=== PATIENT | female | born 1990 | race Caucasian/White ===

== ENCOUNTER 2016-09-10 19:20 | Emergency (ER) | payer MEDICAID ==
[2015-09-06 16:15] VITALS: BMI 29.6
[~2016-09-10 19:20] MED LIST: DILAUDID2 MG PO; IBUPROFEN600 MG PO; PERCOCET 10/3251 TA1 PO; ZOFRAN4 MG PO
[2016-09-10 20:12] LABS: BASOPHILS 0.3 % (0.0-2.0); EOSINOPHILS 1.3 % (0-7); HEMATOCRIT 42.6 % (36.0-48.0); HEMOGLOBIN 14.7 g/dL (12-16); IMMATURE GRANULOCYTES 0.3 % (0-5); LYMPHOCYTES 29.4 % (15-50); MCH 29.9 pg (26.0-34.0); MCHC 34.5 g/dL (31.0-37.0); MCV 86.8 fL (80.0-100.0); MEAN PLATELET VOLUME 11.8 fL (7.4-10.4); MONOCYTES 8.9 % (2-11); NEUTROPHILS 59.8 % (40-80); PLATELET COUNT 226 10x3/uL (130-400); RBC 4.91 10x6/uL (4.00-5.40); RDW 14.3 % (11.5-14.5); WBC 10.3 10x3/uL (4.8-10.8)
[2016-09-10 20:53] LABS: ALBUMIN 3.9 g/dL (3.4-5.0); ALKALINE PHOSPHATASE 59 U/L (46-116); ALT (SGPT) 26 U/L (10-68); APPEARANCE CLEAR (CLEAR); BILIRUBIN NEGATIVE (NEGATIVE); CALC OSMOLALITY 275 mosm/kg (275-300); CARBON DIOXIDE 30.7 mmol/L (21.0-32.0); CHLORIDE - SERUM 103 mmol/L (98-107); COLOR YELLOW (YELLOW); CREATININE - SERUM 0.7 mg/dL (0.6-1.3); GLUCOSE 95 mg/dL (74-106); GLUCOSE NEGATIVE (NEGATIVE); KETONE NEGATIVE (NEGATIVE); LEUKOCYTE ESTERASE NEGATIVE (NEGATIVE); NITRITE NEGATIVE (NEGATIVE); POTASSIUM - SERUM 4.2 mmol/L (3.5-5.1); PROTEIN NEGATIVE (NEGATIVE); PROTEIN - SERUM 7.4 g/dL (6.4-8.2); SODIUM 139 mmol/L (136-145); UREA NITROGEN 7 mg/dL (7-18); UROBILINOGEN NORMAL (NORMAL); eGFR NON AFRICAN AMERICAN > 90 mL/min (90-120)
== END 2016-09-11 00:33 | disposition home or self-care (01) ==
LOC: D.ER 19:20
PROVIDERS: Emergency Medicine
DX: R10.2 Pelvic and perineal pain (principal)

== ENCOUNTER 2016-12-27 14:11 | Emergency (ER) | payer SELFPAY ==
[2015-09-06 16:15] VITALS: BMI 29.6
== END 2016-12-27 14:15 | disposition left against medical advice (07) ==
LOC: D.ER 14:11
DX: Z02.9 Encounter for administrative examinations, unspecified (principal)

== ENCOUNTER → 2016-12-28 10:24 | Emergency (ER) | payer MEDICAID ==
[2015-09-06 16:15] VITALS: BMI 29.6
[2016-12-28 11:11] LABS: BASOPHILS 0.4 % (0-2); EOSINOPHILS 1.6 % (0-7); HEMOGLOBIN 14.2 g/dL (12-16); IMMATURE GRANULOCYTES 0.1 % (0-5); LYMPHOCYTES 23.4 % (15-50); MCH 29.8 pg (26.0-34.0); MCHC 33.8 g/dL (31.0-37.0); MCV 88.1 fL (80.0-100.0); MEAN PLATELET VOLUME 11.8 fL (7.4-10.4); MONOCYTES 13.4 % (2-11); NEUTROPHILS 61.1 % (40-80); PLATELET COUNT 198 10x3/uL (130-400); RBC 4.77 10x6/uL (4.00-5.40); RDW 13.4 % (11.5-14.5); WBC 7.3 10x3/uL (4.8-10.8)
[2016-12-28 11:28] LABS: ALBUMIN 3.7 g/dL (3.4-5.0); ALKALINE PHOSPHATASE 53 U/L (46-116); ALT (SGPT) 21 U/L (10-68); BILIRUBIN - TOTAL 0.31 mg/dL (0.2-1.3); CALC OSMOLALITY 278 mosm/kg (275-300); CARBON DIOXIDE 27.1 mmol/L (21.0-32.0); CHLORIDE - SERUM 107 mmol/L (98-107); CREATININE - SERUM 0.7 mg/dL (0.6-1.3); GLUCOSE 90 mg/dL (74-106); POTASSIUM - SERUM 4.5 mmol/L (3.5-5.1); PROTEIN - SERUM 7.3 g/dL (6.4-8.2); SODIUM 141 mmol/L (136-145); UREA NITROGEN 7 mg/dL (7-18); eGFR NON AFRICAN AMERICAN > 90 mL/min (90-120)
== END | disposition left against medical advice (07) ==
LOC: D.ER 10:24
PROVIDERS: Emergency Medicine
DX: F41.9 Anxiety disorder, unspecified (principal); S00.93XA Contusion of unspecified part of head, initial encounter; W19.XXXA Unspecified fall, initial encounter; Y93.89 Activity, other specified; Y92.89 Other specified places as the place of occurrence of the external cause; F32.9 Major depressive disorder, single episode, unspecified

== ENCOUNTER 2017-02-18 16:35 | Emergency (ER) | payer MEDICAID ==
[2015-09-06 16:15] VITALS: BMI 29.6
[2017-02-18 17:59] LABS: APPEARANCE HAZY (CLEAR); BILIRUBIN NEGATIVE (NEGATIVE); COLOR YELLOW (YELLOW); GLUCOSE NEGATIVE (NEGATIVE); KETONE NEGATIVE (NEGATIVE); LEUKOCYTE ESTERASE 1+ (NEGATIVE); NITRITE NEGATIVE (NEGATIVE); PROTEIN NEGATIVE (NEGATIVE); UROBILINOGEN NORMAL (NORMAL)
[2017-02-18 18:03] LABS: BACTERIA MODERATE /hpf (NONE SEEN); EPITHELIAL CELLS 0-5 /hpf (0-5); MUCUS <1+ /lpf (NONE SEEN)
[2017-02-18 19:08] LABS: BASOPHILS 0.2 % (0-2); EOSINOPHILS 1.4 % (0-7); HEMATOCRIT 42.3 % (36.0-48.0); HEMOGLOBIN 14.4 g/dL (12-16); IMMATURE GRANULOCYTES 0.3 % (0-5); MCH 29.8 pg (26.0-34.0); MCV 87.6 fL (80.0-100.0); MEAN PLATELET VOLUME 11.4 fL (7.4-10.4); MONOCYTES 8.3 % (2-11); NEUTROPHILS 71.8 % (40-80); RBC 4.83 10x6/uL (4.00-5.40); RDW 13.9 % (11.5-14.5); WBC 18.2 10x3/uL (4.8-10.8)
[2017-02-18 19:10] LABS: PLATELET COUNT 243 10x3/uL (130-400)
[2017-02-18 19:10] LABS: UDS - AMPHET NEGATIVE QUAL (NEGATIVE); UDS - BARB NEGATIVE QUAL (NEGATIVE); UDS - BENZO NEGATIVE QUAL (NEGATIVE); UDS - COCAINE NEGATIVE QUAL (NEGATIVE); UDS - METH NEGATIVE QUAL (NEGATIVE); UDS - OPIATE POSITIVE QUAL (NEGATIVE); UDS - PCP NEGATIVE QUAL (NEGATIVE); UDS - THC NEGATIVE QUAL (NEGATIVE)
[2017-02-18 19:37] LABS: ALBUMIN 4.6 g/dL (3.4-5.0); ALKALINE PHOSPHATASE 75 U/L (46-116); ALT (SGPT) 23 U/L (10-68); BILIRUBIN - TOTAL 0.24 mg/dL (0.2-1.3); CALC OSMOLALITY 274 mosm/kg (275-300); CALCIUM 9.3 mg/dL (8.5-10.1); CARBON DIOXIDE 30.1 mmol/L (21.0-32.0); CHLORIDE - SERUM 100 mmol/L (98-107); CREATININE - SERUM 0.6 mg/dL (0.6-1.3); GLUCOSE 97 mg/dL (74-106); LIPASE 122 U/L (73-393); POTASSIUM - SERUM 3.9 mmol/L (3.5-5.1); PROTEIN - SERUM 8.1 g/dL (6.4-8.2); SODIUM 138 mmol/L (136-145); UREA NITROGEN 10 mg/dL (7-18); eGFR NON AFRICAN AMERICAN > 90 mL/min (90-120)
[2017-02-18 19:38] LABS: HCG SERUM NEGATIVE (NEGATIVE)
== END 2017-02-18 22:20 | disposition home or self-care (01) ==
LOC: D.ER 16:35
PROVIDERS: Emergency Medicine; Nurse Practitioner Family
DX: R10.2 Pelvic and perineal pain (principal); N76.0 Acute vaginitis; B96.89 Other specified bacterial agents as the cause of diseases classified elsewhere; N39.0 Urinary tract infection, site not specified; K59.00 Constipation, unspecified

== ENCOUNTER 2017-03-02 16:43 | Emergency (ER) | payer MEDICAID ==
[2015-09-06 16:15] VITALS: BMI 29.6
== END 2017-03-02 18:40 | disposition home or self-care (01) ==
LOC: D.ER 16:43
DX: S93.402A Sprain of unspecified ligament of left ankle, initial encounter (principal); X58.XXXA Exposure to other specified factors, initial encounter

== ENCOUNTER 2017-06-08 10:08 | Emergency (ER) | payer MEDICAID ==
[2015-09-06 16:15] VITALS: BMI 29.6
[2017-06-08 10:32] LABS: BASOPHILS 0.2 % (0-2); EOSINOPHILS 1.4 % (0-7); HEMATOCRIT 45.1 % (36.0-48.0); HEMOGLOBIN 15.7 g/dL (12-16); IMMATURE GRANULOCYTES 0.1 % (0-5); LYMPHOCYTES 16.1 % (15-50); MCH 31.6 pg (26.0-34.0); MCHC 34.8 g/dL (31.0-37.0); MCV 90.7 fL (80.0-100.0); MEAN PLATELET VOLUME 11.8 fL (7.4-10.4); MONOCYTES 7.5 % (2-11); NEUTROPHILS 74.7 % (40-80); PLATELET COUNT 231 10x3/uL (130-400); RBC 4.97 10x6/uL (4.00-5.40); RDW 13.1 % (11.5-14.5); WBC 10.7 10x3/uL (4.8-10.8)
[2017-06-08 10:42] LABS: AMYLASE - SERUM 46 U/L (25-115); LIPASE 260 U/L (73-393)
[2017-06-08 10:45] LABS: TROPONIN-I < 0.017 ng/mL (0.000-0.060)
[2017-06-08 11:48] LABS: ALBUMIN 4.2 g/dL (3.4-5.0); ALKALINE PHOSPHATASE 78 U/L (46-116); ALT (SGPT) 20 U/L (10-68); BILIRUBIN - TOTAL 0.34 mg/dL (0.2-1.3); CALC OSMOLALITY 285 mosm/kg (275-300); CALCIUM 9.7 mg/dL (8.5-10.1); CARBON DIOXIDE 26.2 mmol/L (21.0-32.0); CHLORIDE - SERUM 103 mmol/L (98-107); CREATININE - SERUM 0.8 mg/dL (0.6-1.3); GLUCOSE 93 mg/dL (74-106); MAGNESIUM - SERUM 2.1 mg/dL (1.8-2.4); POTASSIUM - SERUM 3.8 mmol/L (3.5-5.1); PROTEIN - SERUM 8.4 g/dL (6.4-8.2); SODIUM 144 mmol/L (136-145); UREA NITROGEN 11 mg/dL (7-18); eGFR NON AFRICAN AMERICAN > 90 mL/min (90-120)
== END 2017-06-08 12:26 | disposition home or self-care (01) ==
LOC: D.ER 10:08
PROVIDERS: Emergency Medicine
DX: R10.9 Unspecified abdominal pain (principal); F17.200 Nicotine dependence, unspecified, uncomplicated; R00.0 Tachycardia, unspecified

== ENCOUNTER → 2017-07-11 11:41 | Outpatient (CLI) | payer MEDICAID ==
[2015-09-06 16:15] VITALS: BMI 29.6
[~2017-07-11 11:41] MED LIST changes: +ADDERALL 20 MG20 M1 PO; +BACTRIM DS TABL1 TAB PO; +CLEOCIN HCL300 MG PO; +EFFEXOR XR150 MG PO; +ELMIRON100 MG PO; +HYDROCODONE-APA1 TAB PO; +HYSINGLA ER30 MG PO; +KLONOPIN1 MG PO; +OXYCODONE HCL5 MG PO
== END | disposition home or self-care (01) ==
LOC: D.NM 11:41
DX: R10.11 Right upper quadrant pain (principal)

== ENCOUNTER 2017-07-19 23:26 | Emergency (ER) | payer MEDICAID ==
[2015-09-06 16:15] VITALS: BMI 29.6
[~2017-07-19 23:26] MED LIST changes: -ADDERALL 20 MG20 M1 PO; -BACTRIM DS TABL1 TAB PO; -CLEOCIN HCL300 MG PO; -EFFEXOR XR150 MG PO; -ELMIRON100 MG PO; -HYDROCODONE-APA1 TAB PO; -HYSINGLA ER30 MG PO; -KLONOPIN1 MG PO; -OXYCODONE HCL5 MG PO
[2017-07-20 00:54] LABS: BASOPHILS 0.4 % (0-2); EOSINOPHILS 5.5 % (0-7); HEMOGLOBIN 13.8 g/dL (12-16); IMMATURE GRANULOCYTES 0.1 % (0-5); LYMPHOCYTES 51.5 % (15-50); MCH 30.8 pg (26.0-34.0); MCHC 33.7 g/dL (31.0-37.0); MCV 91.5 fL (80.0-100.0); MEAN PLATELET VOLUME 13.1 fL (7.4-10.4); MONOCYTES 9.3 % (2-11); NEUTROPHILS 33.2 % (40-80); PLATELET COUNT 190 10x3/uL (130-400); RBC 4.48 10x6/uL (4.00-5.40); RDW 13.7 % (11.5-14.5); WBC 7.8 10x3/uL (4.8-10.8)
[2017-07-20 01:02] LABS: APPEARANCE CLOUDY (CLEAR); BILIRUBIN NEGATIVE (NEGATIVE); COLOR YELLOW (YELLOW); GLUCOSE NEGATIVE (NEGATIVE); KETONE NEGATIVE (NEGATIVE); NITRITE NEGATIVE (NEGATIVE); PROTEIN NEGATIVE (NEGATIVE); UROBILINOGEN NORMAL (NORMAL)
[2017-07-20 01:03] LABS: AMORPHOUS SEDIMENT >1+ /lpf (NONE SEEN); BACTERIA NONE SEEN /hpf (NONE SEEN); EPITHELIAL CELLS 0-5 /hpf (0-5); RED CELLS - URINE NONE SEEN /hpf (0-5); WHITE CELLS - URINE 0-5 /hpf (0-5)
[2017-07-20 01:19] LABS: ALBUMIN 3.9 g/dL (3.4-5.0); ALKALINE PHOSPHATASE 59 U/L (46-116); ALT (SGPT) 22 U/L (10-68); CALC OSMOLALITY 281 mosm/kg (275-300); CALCIUM 8.7 mg/dL (8.5-10.1); CARBON DIOXIDE 29.2 mmol/L (21.0-32.0); CHLORIDE - SERUM 105 mmol/L (98-107); CREATININE - SERUM 0.9 mg/dL (0.6-1.3); GLUCOSE 92 mg/dL (74-106); PROTEIN - SERUM 7.2 g/dL (6.4-8.2); SODIUM 142 mmol/L (136-145); UREA NITROGEN 10 mg/dL (7-18); eGFR NON AFRICAN AMERICAN 80 mL/min (90-120)
[2017-07-20 01:25] LABS: AMYLASE - SERUM 23 U/L (25-115); LIPASE 113 U/L (73-393)
== END 2017-07-20 03:36 | disposition home or self-care (01) ==
LOC: D.ER 23:26
PROVIDERS: Emergency Medicine
DX: K80.50 Calculus of bile duct without cholangitis or cholecystitis without obstruction (principal); F17.200 Nicotine dependence, unspecified, uncomplicated

== ENCOUNTER 2017-07-28 14:47 | Emergency (ER) | payer MEDICAID ==
[2015-09-06 16:15] VITALS: BMI 29.6
[2017-07-28 15:44] LABS: BASOPHILS 0.4 % (0-2); EOSINOPHILS 3.6 % (0-7); HEMATOCRIT 42.4 % (36.0-48.0); HEMOGLOBIN 14.7 g/dL (12-16); IMMATURE GRANULOCYTES 0.1 % (0-5); LYMPHOCYTES 39.8 % (15-50); MCH 31.5 pg (26.0-34.0); MCHC 34.7 g/dL (31.0-37.0); MCV 90.8 fL (80.0-100.0); MONOCYTES 12.6 % (2-11); NEUTROPHILS 43.5 % (40-80); PLATELET COUNT 177 10x3/uL (130-400); RBC 4.67 10x6/uL (4.00-5.40); RDW 13.6 % (11.5-14.5); WBC 8.3 10x3/uL (4.8-10.8)
[2017-07-28 15:45] LABS: APPEARANCE HAZY (CLEAR); BILIRUBIN NEGATIVE (NEGATIVE); COLOR DK YELLOW (YELLOW); GLUCOSE NEGATIVE (NEGATIVE); KETONE NEGATIVE (NEGATIVE); NITRITE NEGATIVE (NEGATIVE); PROTEIN TRACE mg/dL (NEGATIVE); SPECIFIC GRAVITY 1.025 (1.005-1.020); UROBILINOGEN NORMAL (NORMAL)
[2017-07-28 15:48] LABS: ALBUMIN 4.1 g/dL (3.4-5.0); ALKALINE PHOSPHATASE 59 U/L (46-116); ALT (SGPT) 19 U/L (10-68); AMYLASE - SERUM 26 U/L (25-115); BILIRUBIN - TOTAL 0.27 mg/dL (0.2-1.3); CALC OSMOLALITY 276 mosm/kg (275-300); CALCIUM 9.3 mg/dL (8.5-10.1); CARBON DIOXIDE 27.3 mmol/L (21.0-32.0); CHLORIDE - SERUM 103 mmol/L (98-107); CREATININE - SERUM 0.8 mg/dL (0.6-1.3); GLUCOSE 74 mg/dL (74-106); LIPASE 102 U/L (73-393); POTASSIUM - SERUM 3.9 mmol/L (3.5-5.1); PROTEIN - SERUM 7.7 g/dL (6.4-8.2); SODIUM 139 mmol/L (136-145); UREA NITROGEN 13 mg/dL (7-18); eGFR NON AFRICAN AMERICAN > 90 mL/min (90-120)
[2017-07-28 15:52] LABS: EPITHELIAL CELLS OCC /hpf (0-5); RED CELLS - URINE RARE /hpf (0-5); WHITE CELLS - URINE 0-5 /hpf (0-5)
[2017-07-28 15:53] LABS: BACTERIA FEW /hpf (NONE SEEN); CALCIUM OXALATE CRYSTALS OCC /hpf (NONE SEEN); HYALINE CAST RARE /lpf (NONE SEEN); MUCUS >1+ /lpf (NONE SEEN)
== END 2017-07-28 17:28 | disposition home or self-care (01) ==
LOC: D.ER 14:47
PROVIDERS: Emergency Medicine; Nurse Practitioner Family
DX: K80.50 Calculus of bile duct without cholangitis or cholecystitis without obstruction (principal)

== ENCOUNTER 2017-07-30 12:19 | Day surgery (SDC) | payer MEDICAID ==
[~2017-07-30] VITALS: Ht 160 cm; Wt 68.0 kg
[2017-07-30 12:54] VITALS: BMI 26.6
[2017-07-30] MEDS ORDERED: HYSINGLA ER30 MG PO (13:14)
[2017-07-30] MEDS ORDERED: EFFEXOR XR150 MG PO (13:14)
[2017-07-30] MEDS ORDERED: KLONOPIN1 MG PO (13:15)
[2017-07-30] MEDS ORDERED: ADDERALL 20 MG20 M1 PO (13:16)
[2017-07-30] MEDS ORDERED: ELMIRON100 MG PO (13:16)
[2017-07-30] MEDS ORDERED: HYDROCODONE-APA1 TAB PO (13:17)
[2017-07-30 14:45] LABS: BASOPHILS 0.3 % (0-2); HEMOGLOBIN 14.5 g/dL (12-16); IMMATURE GRANULOCYTES 0.1 % (0-5); LYMPHOCYTES 25.7 % (15-50); MCH 31.4 pg (26.0-34.0); MCHC 34.5 g/dL (31.0-37.0); MCV 90.9 fL (80.0-100.0); MEAN PLATELET VOLUME 12.3 fL (7.4-10.4); MONOCYTES 11.8 % (2-11); NEUTROPHILS 58.1 % (40-80); PLATELET COUNT 176 10x3/uL (130-400); RBC 4.62 10x6/uL (4.00-5.40); RDW 13.4 % (11.5-14.5); WBC 7.7 10x3/uL (4.8-10.8)
[2017-07-30 15:00] LABS: APTT 28.4 SECONDS (22.8-39.4); INR 1.03 (0.85-1.17); PROTIME 13.1 SECONDS (11.6-15.0)
[2017-07-30 15:08] LABS: ALBUMIN 3.9 g/dL (3.4-5.0); ALKALINE PHOSPHATASE 58 U/L (46-116); ALT (SGPT) 20 U/L (10-68); BILIRUBIN - DIRECT 0.09 mg/dL (0.00-0.30); BILIRUBIN - INDIRECT 0.19 mg/dL (0.00-1.00); BILIRUBIN - TOTAL 0.28 mg/dL (0.2-1.3); CALC OSMOLALITY 275 mosm/kg (275-300); CALCIUM 8.8 mg/dL (8.5-10.1); CARBON DIOXIDE 28.2 mmol/L (21.0-32.0); CHLORIDE - SERUM 104 mmol/L (98-107); CREATININE - SERUM 0.6 mg/dL (0.6-1.3); GLUCOSE 95 mg/dL (74-106); POTASSIUM - SERUM 4.3 mmol/L (3.5-5.1); PROTEIN - SERUM 7.2 g/dL (6.4-8.2); SODIUM 138 mmol/L (136-145); UREA NITROGEN 13 mg/dL (7-18); eGFR NON AFRICAN AMERICAN > 90 mL/min (90-120)
[2017-07-30 15:23] VITALS: BP 101/71
[2017-07-30 20:00] VITALS: BP 121/68
--- NOTE | 2017-07-30 21:47 | NUR ---
1943)REC'D. STATES NEED MY BOLUS . INFORMED TOO SOON.WILL BE 45MIN AND I'LL BE MORE THAN HAPPY TO ADMINISTER TO YOU. VOICES UNDERSTANDING.LEFT ROOM ARC AND GAS WELDER STATES 2211 STATES BEEN TRYING TO GET BOLUS FOR AN HOUR WENT BACK TO ROOM INFORMED OF CONVERSATION WE JUST HAD STATES I NEED IT.INFORMED I HAVE TO GIVE MED.ACCORDING TO PHYSICIAN'S ORDER AGAIN VOICES UNDERSTANDING.LEAVING ANOTHER PATIENTS ROOM ALONDRA TAYLOR STATES CLAIMS ADJUSTER EMPTY IN 2211.ENTERED ROOM WITH MEDICATION STATES PAIN PUMP HAS BEEN EMPTY FOR 2 HOURS ATTEMPTED TO SAY NO I JUST LEFT YOUR ROOM STATES GET OUT GET ME ANOTHER NURSE REPORTED TO KATIE TAYLOR CHARGE NURSE.
--- NOTE | 2017-07-30 21:55 | NUR ---
RECIEVED PATIENT. SHE IS SITTING UP IN BED CRYING. SHE STATED "I AM HAVING A PANIC ATTACK I NEED MY MEDICINE." GAVE PATIENT HER SCHEDULED KLONOPIN." THE FILM WRITER PUMP IS TURNED OFF, THE SYRINGE IS EMPTY. REPLACED SYRINGE, ADMINISTERED A 0.5MG BOLUS, PER ORDER. CONFIRMED FILM WRITER PUMP SETTINGS ARE SET PER ORDER. PATIENT REQUESTED AN EXTRA BLANKET AND HER HEATING PAD HEATED. HEATED HER HEATING PAD AND BROUGHT HER A BLANKET. SHE DENIES ANY OTHER NEEDS AT THIS TIME.
--- NOTE | 2017-07-31 | NUR ---
PATIENT NOW NPO. 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 POST-VOID BLADDER SCAN SHOWED 91ML.
[2017-07-31 04:00] VITALS: BP 124/59
[2017-07-31 05:55] LABS: BASOPHILS 0.4 % (0-2); EOSINOPHILS 4.3 % (0-7); HEMOGLOBIN 13.2 g/dL (12-16); IMMATURE GRANULOCYTES 0.3 % (0-5); LYMPHOCYTES 45.5 % (15-50); MCH 30.6 pg (26.0-34.0); MCHC 33.8 g/dL (31.0-37.0); MCV 90.5 fL (80.0-100.0); MEAN PLATELET VOLUME 13.1 fL (7.4-10.4); MONOCYTES 13.4 % (2-11); NEUTROPHILS 36.1 % (40-80); RBC 4.31 10x6/uL (4.00-5.40); RDW 13.3 % (11.5-14.5)
[2017-07-31 05:56] LABS: PLATELET COUNT 128 10x3/uL (130-400)
[2017-07-31 05:59] LABS: CALC OSMOLALITY 275 mosm/kg (275-300); CALCIUM 8.8 mg/dL (8.5-10.1); CARBON DIOXIDE 31.4 mmol/L (21.0-32.0); CHLORIDE - SERUM 102 mmol/L (98-107); CREATININE - SERUM 0.6 mg/dL (0.6-1.3); GLUCOSE 90 mg/dL (74-106); MAGNESIUM - SERUM 1.9 mg/dL (1.8-2.4); POTASSIUM - SERUM 4.1 mmol/L (3.5-5.1); SODIUM 138 mmol/L (136-145); UREA NITROGEN 12 mg/dL (7-18); eGFR NON AFRICAN AMERICAN > 90 mL/min (90-120)
--- NOTE | 2017-07-31 07:00 | NUR ---
PT REC'D FROM [facility]. RESTING IN BED WATCHING TV. AAOX4. CURRENT PAIN LEVEL IN ABB 05/05. STATED SHE JUST RECENTLY USED HER DEVELOPMENT PLANNER BUTTON AND IS ASKING ABOUT HER BOLUS DOSE. EXPLAINED TO PT THAT SHE COULD HAVE HER NEXT BOLUS DOSE AT 0800. REGULAR HEART RATE AND RHYTHM. LUNG SOUNDS CLEAR AND EQUAL BILAT. BOWEL SOUNDS HYPERACTIVE X4 QUADS. TENDER TO LIGHT PALPATION. STATED HER LAST BM WAS YESTERDAY AFTERNOON. PIV TO R FA FREE OF REDNESS AND SWELLING. REMINDED PT TO DO CLEANSE BEFORE SURGERY AND EXPLAINED TO HER HOW TO DO IT. STATES SHE UNDERSTANDS. BED LOW, CALL LIGHT IN REACH, DENIES NEEDS. CPOC.
--- NOTE | 2017-07-31 08:30 | NUR ---
MORNING MEDS PASSED AT THIS TIME. PT COMPLAINING OF BACK. ICE PACK PROVIDED. PRN BOLUS DOSE FROM [facility] [employer]PER DELIVERED. CURRENT PAIN LEVEL A 10/10 TO ABD. WILL REASSESS. LESS THAN 50CC'S OF WATER DRANK TO TAKE MEDS. BED LOW, CALL LIGHT IN REACH, DENIES NEEDS. CPOC.
[2017-07-31 09:31] VITALS: BP 93/59
--- NOTE | 2017-07-31 10:40 | NUR ---
PT PRE OP'D AT THIS TIME. MODERATE ANXIETY NOTED. HAD PT TAKE SLOW DEEP BREATHES, AND THIS SEEMED TO HELP SOME. CHANGED INTO CLEAN GOWN AFTER DOING CLEANSE. ESCORTED OUT VIA BED.
[2017-07-31] MEDS ORDERED: OXYCODONE HCL5 MG PO (12:14)
[2017-07-31 12:27] VITALS: Ht 160 cm; Wt 68.0 kg
--- NOTE | 2017-07-31 13:08 | NUR ---
AFTER 25 MG DEMEROL AND 2 MG DILUADID, PATIENT RATES PAIN 8/10 AFTER 30 MIMUTES. PATIENT STATES SHE TAKES A LOT OF PAIN MEDICATIONS AT HOME AND HAS BUILT UP A TOLERANCE.
[2017-07-31 13:28] VITALS: BP 102/57
--- NOTE | 2017-07-31 13:30 | NUR ---
PT REC'D BACK TO ROOM FROM SURGERY VIA BED. ACCOMPANIED BY PACU STAFF. DROWSY, BUT EASILY AROUSED. VSS. X4 LAP SITES TO ABD WITH STERI-STRIPS. CDI. RATING CURRENT PAIN IN ABD 9/10, BUT FALLS ASLEEP EASILY. RECONNECTED TO IVF. BED LOW, CALL LIGHT IN REACH, DENIES NEEDS. CPOC
--- NOTE | 2017-07-31 16:00 | NUR ---
DISCHARGED INSTRUCTIONS REVIEWED AT THIS TIME. NO QUESTIONS OR CONCERNS VOICED. DISCUSSED FOLLOW UP APPOINTMENTS AND PAIN MEDICATION PRESCRIPTIONS. PIV TO R FA DC'D WITH CATHETER INTACT. PRESSURE AND DRESSING APPLIED. ESCORTED OUT VIA WC.
== END 2017-07-31 17:08 | disposition home or self-care (01) ==
LOC: OBSVTIME → D.MS 12:19 → UNDOADMOB 12:19 → D.MS 12:19 → D.OPS 12:19 → OBSVTIME 07-31 13:00 → EDSTATUS 07-31 14:15 → D.OPS 07-31 17:08 → D.MS 07-31 17:08
PROVIDERS: Surgery
DX: K82.8 Other specified diseases of gallbladder (principal); F11.20 Opioid dependence, uncomplicated; Z01.812 Encounter for preprocedural laboratory examination

== ENCOUNTER 2017-09-07 11:12 | Inpatient (IN) | payer MEDICAID ==
[~2017-09-07] VITALS: Ht 160 cm; Wt 68.2 kg
--- NOTE | ~2017-09-07 | CN ---
PATIENT NAME:SUSANA PINEDA MEDICAL RECORD: [id number] : 89 LOCATION:D.MS [facility] ADMIT DATE: 09/08/17 ACCOUNT: [id number] CONSULTING PHYSICIAN: GRETCHEN PERES MD REFERRING PHYSICIAN: BRISSA MATIAS MD DATE OF CONSULTATION: 09/07/2017 PREOPERATIVE DIAGNOSIS: Infection. HISTORY OF PRESENT ILLNESS: The patient has been treated as an outpatient for right knee cellulitis. She presents to the Emergency Room. I was asked to see her in consultation. Palpation aggravates. Nothing alleviates. The patient is quite anxious. She is tearful. There is an area of erythema that is inferior to the right patella. It is located anteriorly. There is a dot in the center that is about the size of a pencil lead. It is dark. The patient states that she tried to pop a pustule and developed this increasing cellulitis. She describes the pain as severe. Attempts at ambulation and palpation of the area aggravates. Nothing alleviates. The patient states she has been running some fever up above 101.0. This is a consultation note addendum. For the typed portion of the consult note, please see the chart. This would include the past medical and surgical history, allergies, current medications, family history as well as social history. REVIEW OF SYSTEMS: Positive for anxiety. Positive for pain. Positive for fever. No nausea, no vomiting. Positive for difficulty with ambulation. PHYSICAL EXAMINATION: GENERAL: The patient appears acutely ill. She does not appear chronically ill. The entire physical examination was performed in the presence of a female nurse. VITAL SIGNS: Reviewed. EARS: External ears appear normal. EYES: Extraocular movements are intact. NECK: Trachea is midline. CHEST: No intercostal retractions. PULMONARY: Nonlabored, no stridor. ABDOMEN: No peritonitis with movement. EXTREMITIES: As described above. There is pain with tapping the right patella. There is pain inferior to the patella and also in the inferior lateral areas of the patella there is pain superiorly on either side of the patella as well. It hurts to bend her knee. It hurts to dorsiflex the right foot as well. The knee joint itself is not erythematous. There may be slight effusion. I believe that the patient likely has a septic joint. LYMPHATICS: No lymphangitic streaking of the exposed extremities. PSYCHIATRIC: Anxious affect. NEUROLOGIC: She answers questions appropriately. BACK: No thoracic kyphosis. IMPRESSION: Probable septic joint, right knee. PLAN: Continue IV antibiotics. I have contacted, Mallory, the nurse practitioner for Dr. Matias. I recommend an orthopedic consultation as I believe the patient needs an arthrocentesis and perhaps a wash out of the right knee. There are going to effect a consultation for an orthopedic surgeon. I will see CONSULT REPORT [id number] SUSANA PINEDA HOPE the patient on a p.r.n. basis. TRANSINT:[id number] Voice Confirmation ID: [id number] DOCUMENT ID: [id number] GRETCHEN PERES MD at 0938 CC: BRISSA MATIAS MD and LESLY MARTINEZ MD [id number] DICTATION DATE: 09/07/171428 REGISTERED ART THERAPIST: 09/07/172123 DIS IN 09/10/17 [address] [place] [address]
--- NOTE | ~2017-09-07 | OP ---
PATIENT NAME: SUSANA PINEDA MEDICAL RECORD: [id number] :89 LOCATION:D.MS [facility] ADMISSION DATE:09/08/17 SURGEON: LUC DOLL MD DATE OF OPERATION: 09/09/2017 PREOPERATIVE DIAGNOSIS: Infrapatella abscess of the right knee. POSTOPERATIVE DIAGNOSIS: Infrapatella abscess of the right knee. PROCEDURES: Excisional debridement of the infrapatellar abscess likely MRSA of skin, subcutaneous tissue, fat, and fascia. No bone involved, no joint involved. SURGEON: Luc Doll MD ANESTHESIA: General. INTRAOPERATIVE COMPLICATIONS: None. SUMMARY OF PATHOLOGIC FINDINGS: Upon entering this, this was a very walled off abscess in the region of the infrapatellar bursa. This did not communicate with the joint. OPERATIVE SUMMARY IN DETAIL: After obtaining the appropriate preoperative orthopedic surgery consent as well as anesthetic consultation, evaluation and clearance, the patient was brought to the operating room and placed on the operating table in supine position. After general laryngeal mask airway was administered, tourniquet was placed about the proximal aspect of the right lower extremity. Note, it was not used during the case. Right lower extremity was prepped and draped in routine sterile fashion. An incision was made directly over the necrotic area of the abscess, elongated distally and proximally. Copious purulence was noted. Cultures were taken. Combination of a curettage and rongeur were used to completely eradicate the abscess of all purulence seen. Copious bulb syringe lavage was used to irrigate the area out. It was then packed with quarter-inch iodoform gauze. Sterile dressings were applied. The patient was awakened, taken to recovery in stable condition. All final needle and sponge counts were correct. TRANSINT:[id number] Voice Confirmation ID: [id number] DOCUMENT ID: [id number] LUC DOLL MD at 1343 CC: [id number] DICTATION DATE: 09/12/17 1255 BUSINESS RULES DEVELOPER: 09/12/17 1312 DIS IN 09/10/17 [place] [address]
[~2017-09-07 11:12] MED LIST changes: +ADDERALL 20 MG20 M1 PO; +EFFEXOR XR150 MG PO; +ELMIRON100 MG PO; +HYDROCODONE-APA1 TAB PO; +HYSINGLA ER30 MG PO; +KLONOPIN1 MG PO; +OXYCODONE HCL5 MG PO
[2017-09-07 14:55] LABS: BASOPHILS 0.2 % (0-2); EOSINOPHILS 2.7 % (0-7); HEMATOCRIT 43.3 % (36.0-48.0); HEMOGLOBIN 14.8 g/dL (12-16); IMMATURE GRANULOCYTES 0.2 % (0-5); LYMPHOCYTES 20.2 % (15-50); MCH 31.6 pg (26.0-34.0); MCHC 34.2 g/dL (31.0-37.0); MCV 92.5 fL (80.0-100.0); MEAN PLATELET VOLUME 11.2 fL (7.4-10.4); MONOCYTES 9.5 % (2-11); NEUTROPHILS 67.2 % (40-80); RBC 4.68 10x6/uL (4.00-5.40); RDW 13.5 % (11.5-14.5); WBC 11.1 10x3/uL (4.8-10.8)
[2017-09-07 14:57] LABS: PLATELET COUNT 269 10x3/uL (130-400)
[2017-09-07 15:10] LABS: ALBUMIN 3.9 g/dL (3.4-5.0); ALKALINE PHOSPHATASE 67 U/L (46-116); ALT (SGPT) 24 U/L (10-68); C-REACTIVE PROTEIN 6.5 mg/dL (0.0-0.9); CALC OSMOLALITY 280 mosm/kg (275-300); CALCIUM 9.6 mg/dL (8.5-10.1); CARBON DIOXIDE 32.3 mmol/L (21.0-32.0); CHLORIDE - SERUM 102 mmol/L (98-107); CREATININE - SERUM 0.7 mg/dL (0.6-1.3); GLUCOSE 100 mg/dL (74-106); MAGNESIUM - SERUM 2.8 mg/dL (1.8-2.4); POTASSIUM - SERUM 4.3 mmol/L (3.5-5.1); PROTEIN - SERUM 8.1 g/dL (6.4-8.2); SODIUM 142 mmol/L (136-145); UREA NITROGEN 7 mg/dL (7-18); eGFR NON AFRICAN AMERICAN > 90 mL/min (90-120)
[2017-09-07 15:57] LABS: ERYTHROCYTE SEDIMENTATION RATE 26 mm/hr (0-20)
[2017-09-07 17:38] VITALS: BP 125/81; BMI 26.6
[2017-09-07 20:00] VITALS: BP 96/62
[2017-09-08] VITALS: BP 110/69
[2017-09-08 04:00] VITALS: BP 97/54
[2017-09-08 05:50] LABS: BASOPHILS 0.4 % (0-2); EOSINOPHILS 4.8 % (0-7); HEMOGLOBIN 12.6 g/dL (12-16); IMMATURE GRANULOCYTES 0.1 % (0-5); LYMPHOCYTES 31.3 % (15-50); MCH 31.2 pg (26.0-34.0); MCHC 33.2 g/dL (31.0-37.0); MCV 94.1 fL (80.0-100.0); MEAN PLATELET VOLUME 11.5 fL (7.4-10.4); MONOCYTES 17.5 % (2-11); NEUTROPHILS 45.9 % (40-80); PLATELET COUNT 226 10x3/uL (130-400); RBC 4.04 10x6/uL (4.00-5.40); RDW 13.6 % (11.5-14.5)
[2017-09-08 06:07] LABS: WBC 7.8 10x3/uL (4.8-10.8)
[2017-09-08 06:31] LABS: ALBUMIN 3.2 g/dL (3.4-5.0); ALKALINE PHOSPHATASE 61 U/L (46-116); ALT (SGPT) 23 U/L (10-68); CALC OSMOLALITY 284 mosm/kg (275-300); CALCIUM 8.7 mg/dL (8.5-10.1); CARBON DIOXIDE 30.8 mmol/L (21.0-32.0); CHLORIDE - SERUM 105 mmol/L (98-107); CREATININE - SERUM 0.5 mg/dL (0.6-1.3); GLUCOSE 101 mg/dL (74-106); PROTEIN - SERUM 6.2 g/dL (6.4-8.2); SODIUM 144 mmol/L (136-145); UREA NITROGEN 8 mg/dL (7-18); eGFR NON AFRICAN AMERICAN > 90 mL/min (90-120)
[2017-09-08 09:30] VITALS: BP 109/57
[2017-09-08 09:45] VITALS: Ht 160 cm; Wt 68.2 kg
[2017-09-08 12:07] VITALS: BP 101/63
[2017-09-08 16:12] VITALS: BP 103/57
[2017-09-08 22:07] VITALS: BP 117/76
[2017-09-09] VITALS (11 sets, daily range): BP systolic 98–131; BP diastolic 54–79
[2017-09-09 04:51] LABS: BASOPHILS 0.3 % (0-2); EOSINOPHILS 4.3 % (0-7); HEMATOCRIT 37.7 % (36.0-48.0); HEMOGLOBIN 12.3 g/dL (12-16); IMMATURE GRANULOCYTES 0.3 % (0-5); MCH 30.7 pg (26.0-34.0); MCHC 32.6 g/dL (31.0-37.0); MEAN PLATELET VOLUME 11.4 fL (7.4-10.4); MONOCYTES 12.8 % (2-11); NEUTROPHILS 49.3 % (40-80); PLATELET COUNT 261 10x3/uL (130-400); RBC 4.01 10x6/uL (4.00-5.40); RDW 13.2 % (11.5-14.5); WBC 7.3 10x3/uL (4.8-10.8)
[2017-09-09 05:22] LABS: ALBUMIN 3.1 g/dL (3.4-5.0); ALKALINE PHOSPHATASE 70 U/L (46-116); BILIRUBIN - TOTAL 0.18 mg/dL (0.2-1.3); CALC OSMOLALITY 276 mosm/kg (275-300); CALCIUM 8.5 mg/dL (8.5-10.1); CHLORIDE - SERUM 101 mmol/L (98-107); CREATININE - SERUM 0.6 mg/dL (0.6-1.3); GLUCOSE 97 mg/dL (74-106); POTASSIUM - SERUM 3.9 mmol/L (3.5-5.1); PROTEIN - SERUM 6.7 g/dL (6.4-8.2); SODIUM 140 mmol/L (136-145); UREA NITROGEN 8 mg/dL (7-18); eGFR NON AFRICAN AMERICAN > 90 mL/min (90-120)
[2017-09-09 05:26] LABS: ALT (SGPT) 50 U/L (10-68)
[2017-09-10 01:44] VITALS: BP 103/75
[2017-09-10 06:59] LABS: BASOPHILS 0.2 % (0-2); EOSINOPHILS 2.4 % (0-7); HEMATOCRIT 37.4 % (36.0-48.0); HEMOGLOBIN 12.1 g/dL (12-16); IMMATURE GRANULOCYTES 0.3 % (0-5); LYMPHOCYTES 21.9 % (15-50); MCH 30.5 pg (26.0-34.0); MCHC 32.4 g/dL (31.0-37.0); MCV 94.2 fL (80.0-100.0); MEAN PLATELET VOLUME 10.8 fL (7.4-10.4); MONOCYTES 9.3 % (2-11); NEUTROPHILS 65.9 % (40-80); PLATELET COUNT 232 10x3/uL (130-400); RBC 3.97 10x6/uL (4.00-5.40)
[2017-09-10 07:02] LABS: WBC 10.1 10x3/uL (4.8-10.8)
[2017-09-10 07:19] LABS: ALBUMIN 3.1 g/dL (3.4-5.0); ALKALINE PHOSPHATASE 67 U/L (46-116); CALC OSMOLALITY 279 mosm/kg (275-300); CALCIUM 8.8 mg/dL (8.5-10.1); CHLORIDE - SERUM 102 mmol/L (98-107); CREATININE - SERUM 0.6 mg/dL (0.6-1.3); GLUCOSE 86 mg/dL (74-106); PROTEIN - SERUM 6.1 g/dL (6.4-8.2); SODIUM 142 mmol/L (136-145); UREA NITROGEN 8 mg/dL (7-18); eGFR NON AFRICAN AMERICAN > 90 mL/min (90-120)
[2017-09-10 07:20] LABS: ALT (SGPT) 37 U/L (10-68); BILIRUBIN - TOTAL 0.09 mg/dL (0.2-1.3)
[2017-09-10 08:53] VITALS: BP 105/57
[2017-09-10 11:01] VITALS: BP 143/76
[2017-09-10] MEDS ORDERED: BACTRIM DS TABL1 TAB PO (14:25)
[2017-09-10] MEDS ORDERED: CLEOCIN HCL300 MG PO (14:31)
== END 2017-09-10 17:24 | disposition home health service (06) | DRG 580 ==
LOC: D.ER 11:12 → OBSVTIME 14:52 → D.MS 14:52
PROVIDERS: Emergency Medicine; Orthopaedic Surgery
PROC: 0J9N0ZZ Drainage of Right Lower Leg Subcutaneous Tissue and Fascia, Open Approach (ICD-10-PCS; principal; 2017-09-09 18:00)
DX: L02.415 Cutaneous abscess of right lower limb (principal); F19.20 Other psychoactive substance dependence, uncomplicated; F17.203 Nicotine dependence unspecified, with withdrawal

== ENCOUNTER 2017-09-14 13:45 | Emergency (ER) | payer MEDICAID ==
[2017-09-08 09:45] VITALS: BMI 26.6
[~2017-09-14 13:45] MED LIST changes: +BACTRIM DS TABL1 TAB PO; +CLEOCIN HCL300 MG PO
[2017-09-14 14:47] LABS: BASOPHILS 0.2 % (0-2); EOSINOPHILS 4.1 % (0-7); HEMATOCRIT 40.7 % (36.0-48.0); HEMOGLOBIN 13.8 g/dL (12-16); IMMATURE GRANULOCYTES 0.5 % (0-5); LYMPHOCYTES 27.4 % (15-50); MCH 30.7 pg (26.0-34.0); MCHC 33.9 g/dL (31.0-37.0); MCV 90.4 fL (80.0-100.0); MEAN PLATELET VOLUME 10.7 fL (7.4-10.4); MONOCYTES 11.9 % (2-11); NEUTROPHILS 55.9 % (40-80); PLATELET COUNT 314 10x3/uL (130-400); RDW 13.2 % (11.5-14.5); WBC 9.2 10x3/uL (4.8-10.8)
[2017-09-14 14:59] LABS: ALKALINE PHOSPHATASE 76 U/L (46-116); ALT (SGPT) 24 U/L (10-68); BILIRUBIN - TOTAL 0.26 mg/dL (0.2-1.3); CALC OSMOLALITY 277 mosm/kg (275-300); CALCIUM 9.3 mg/dL (8.5-10.1); CARBON DIOXIDE 27.9 mmol/L (21.0-32.0); CHLORIDE - SERUM 103 mmol/L (98-107); CREATININE - SERUM 0.9 mg/dL (0.6-1.3); GLUCOSE 83 mg/dL (74-106); POTASSIUM - SERUM 4.5 mmol/L (3.5-5.1); PROTEIN - SERUM 7.5 g/dL (6.4-8.2); SODIUM 140 mmol/L (136-145); UREA NITROGEN 12 mg/dL (7-18); eGFR NON AFRICAN AMERICAN 80 mL/min (90-120)
== END 2017-09-14 15:35 | disposition home or self-care (01) ==
LOC: D.ER 13:45
PROVIDERS: Family Medicine
DX: T37.0X5A Adverse effect of sulfonamides, initial encounter (principal); Y92.019 Unspecified place in single-family (private) house as the place of occurrence of the external cause; F17.200 Nicotine dependence, unspecified, uncomplicated

== ENCOUNTER 2017-09-18 16:48 | Emergency (ER) | payer MEDICAID ==
[2017-09-08 09:45] VITALS: BMI 26.6
== END 2017-09-18 18:47 | disposition home or self-care (01) ==
LOC: D.ER 16:48
DX: L03.115 Cellulitis of right lower limb (principal)

== ENCOUNTER → 2017-09-30 18:26 | Outpatient (CLI) | payer MEDICAID ==
[2017-09-08 09:45] VITALS: BMI 26.6
== END | disposition home or self-care (01) ==
LOC: D.LABREF 18:26
DX: M25.561 Pain in right knee (principal)

== ENCOUNTER → 2017-10-01 14:23 | Outpatient (CLI) | payer MEDICAID ==
[2017-09-08 09:45] VITALS: BMI 26.6
[2017-10-01 16:13] LABS: BASOPHILS 0.3 % (0-2); EOSINOPHILS 4.7 % (0-7); HEMATOCRIT 44.4 % (36.0-48.0); IMMATURE GRANULOCYTES 0.1 % (0-5); LYMPHOCYTES 28.5 % (15-50); MCH 30.8 pg (26.0-34.0); MCHC 33.8 g/dL (31.0-37.0); MCV 91.2 fL (80.0-100.0); MEAN PLATELET VOLUME 12.2 fL (7.4-10.4); MONOCYTES 8.5 % (2-11); NEUTROPHILS 57.9 % (40-80); RBC 4.87 10x6/uL (4.00-5.40); RDW 13.1 % (11.5-14.5); WBC 7.9 10x3/uL (4.8-10.8)
[2017-10-01 16:14] LABS: PLATELET COUNT 215 10x3/uL (130-400)
[2017-10-01 18:21] LABS: ERYTHROCYTE SEDIMENTATION RATE 3 mm/hr (0-20)
== END | disposition home or self-care (01) ==
LOC: D.LABREF 14:23
PROVIDERS: Orthopaedic Surgery
DX: M71.061 Abscess of bursa, right knee (principal); F32.9 Major depressive disorder, single episode, unspecified; K21.9 Gastro-esophageal reflux disease without esophagitis

== ENCOUNTER 2017-10-23 23:29 | Emergency (ER) | payer MEDICAID ==
[2017-09-08 09:45] VITALS: BMI 26.6
== END 2017-10-24 02:45 | disposition home or self-care (01) ==
LOC: D.ER 23:29
DX: S83.206A Unspecified tear of unspecified meniscus, current injury, right knee, initial encounter (principal); X50.9XXA Other and unspecified overexertion or strenuous movements or postures, initial encounter; Y93.89 Activity, other specified; Y92.019 Unspecified place in single-family (private) house as the place of occurrence of the external cause; M25.561 Pain in right knee; F17.200 Nicotine dependence, unspecified, uncomplicated

== ENCOUNTER 2017-11-12 04:16 | Emergency (ER) | payer MEDICAID ==
[2017-09-08 09:45] VITALS: BMI 26.6
[2017-11-12 05:26] LABS: BASOPHILS 0.3 % (0-2); EOSINOPHILS 2.7 % (0-7); HEMATOCRIT 38.9 % (36.0-48.0); HEMOGLOBIN 13.2 g/dL (12-16); IMMATURE GRANULOCYTES 0.2 % (0-5); MCH 30.1 pg (26.0-34.0); MCHC 33.9 g/dL (31.0-37.0); MCV 88.8 fL (80.0-100.0); MEAN PLATELET VOLUME 11.4 fL (7.4-10.4); NEUTROPHILS 42.8 % (40-80); PLATELET COUNT 208 10x3/uL (130-400); RBC 4.38 10x6/uL (4.00-5.40); RDW 13.5 % (11.5-14.5); WBC 10.5 10x3/uL (4.8-10.8)
[2017-11-12 05:46] LABS: ALBUMIN 3.5 g/dL (3.4-5.0); ALKALINE PHOSPHATASE 51 U/L (46-116); ALT (SGPT) 28 U/L (10-68); CALC OSMOLALITY 284 mosm/kg (275-300); CALCIUM 8.6 mg/dL (8.5-10.1); CARBON DIOXIDE 28.4 mmol/L (21.0-32.0); CHLORIDE - SERUM 103 mmol/L (98-107); CREATINE KINASE 43 UL (21-215); CREATININE - SERUM 0.9 mg/dL (0.6-1.3); GLUCOSE 122 mg/dL (74-106); LIPASE 140 U/L (73-393); SODIUM 142 mmol/L (136-145); UREA NITROGEN 16 mg/dL (7-18); eGFR NON AFRICAN AMERICAN 80 mL/min (90-120)
[2017-11-12 06:22] LABS: UDS - AMPHET POSITIVE QUAL (NEGATIVE); UDS - BARB NEGATIVE QUAL (NEGATIVE); UDS - BENZO NEGATIVE QUAL (NEGATIVE); UDS - COCAINE POSITIVE QUAL (NEGATIVE); UDS - OPIATE POSITIVE QUAL (NEGATIVE); UDS - PCP NEGATIVE QUAL (NEGATIVE); UDS - THC NEGATIVE QUAL (NEGATIVE)
[2017-11-12 06:33] LABS: APPEARANCE HAZY (CLEAR); COLOR DK YELLOW (YELLOW); SPECIFIC GRAVITY 1.025 (1.005-1.020)
[2017-11-12 06:34] LABS: BILIRUBIN NEGATIVE (NEGATIVE); GLUCOSE NEGATIVE (NEGATIVE); KETONE NEGATIVE (NEGATIVE); NITRITE NEGATIVE (NEGATIVE); PROTEIN NEGATIVE (NEGATIVE); UROBILINOGEN NORMAL (NORMAL)
== END 2017-11-12 06:05 | disposition left against medical advice (07) ==
LOC: D.ER 04:16
PROVIDERS: Family Medicine
DX: R55 Syncope and collapse (principal)

== ENCOUNTER 2017-11-19 16:06 | Emergency (ER) | payer MEDICAID ==
[2017-09-08 09:45] VITALS: BMI 26.6
[2017-11-19 16:54] LABS: BASOPHILS 0.5 % (0-2); EOSINOPHILS 2.6 % (0-7); HEMATOCRIT 41.6 % (36.0-48.0); HEMOGLOBIN 14.2 g/dL (12-16); IMMATURE GRANULOCYTES 0.1 % (0-5); MCH 30.7 pg (26.0-34.0); MCHC 34.1 g/dL (31.0-37.0); MCV 89.8 fL (80.0-100.0); MEAN PLATELET VOLUME 11.5 fL (7.4-10.4); MONOCYTES 9.3 % (2-11); NEUTROPHILS 52.5 % (40-80); PLATELET COUNT 232 10x3/uL (130-400); RBC 4.63 10x6/uL (4.00-5.40); RDW 13.9 % (11.5-14.5); WBC 8.8 10x3/uL (4.8-10.8)
[2017-11-19 17:11] LABS: APTT 28.1 SECONDS (22.8-39.4); INR 0.97 (0.85-1.17); PROTIME 12.5 SECONDS (11.6-15.0)
[2017-11-19 17:15] LABS: ALBUMIN 3.9 g/dL (3.4-5.0); ALKALINE PHOSPHATASE 59 U/L (46-116); ALT (SGPT) 23 U/L (10-68); BILIRUBIN - TOTAL 0.21 mg/dL (0.2-1.3); CALC OSMOLALITY 282 mosm/kg (275-300); CALCIUM 8.7 mg/dL (8.5-10.1); CARBON DIOXIDE 27.5 mmol/L (21.0-32.0); CHLORIDE - SERUM 105 mmol/L (98-107); CREATININE - SERUM 0.7 mg/dL (0.6-1.3); GLUCOSE 87 mg/dL (74-106); POTASSIUM - SERUM 4.6 mmol/L (3.5-5.1); PROTEIN - SERUM 7.6 g/dL (6.4-8.2); SODIUM 143 mmol/L (136-145); UREA NITROGEN 10 mg/dL (7-18); eGFR NON AFRICAN AMERICAN > 90 mL/min (90-120)
[2017-11-19 17:29] LABS: HCG SERUM NEGATIVE (NEGATIVE)
[2017-11-19 18:04] LABS: ERYTHROCYTE SEDIMENTATION RATE 10 mm/hr (0-20)
== END 2017-11-19 19:41 | disposition home or self-care (01) ==
LOC: D.ER 16:06
PROVIDERS: Family Medicine; Physician Assistant
DX: R10.32 Left lower quadrant pain (principal); R10.31 Right lower quadrant pain; K62.5 Hemorrhage of anus and rectum; K64.9 Unspecified hemorrhoids; F17.200 Nicotine dependence, unspecified, uncomplicated

== ENCOUNTER 2017-11-25 20:53 | Emergency (ER) | payer MEDICAID ==
[2017-09-08 09:45] VITALS: BMI 26.6
[2017-11-25 21:32] LABS: APPEARANCE HAZY (CLEAR); BILIRUBIN NEGATIVE (NEGATIVE); COLOR DK YELLOW (YELLOW); EPITHELIAL CELLS 0-5 /hpf (0-5); GLUCOSE NEGATIVE (NEGATIVE); KETONE NEGATIVE (NEGATIVE); NITRITE NEGATIVE (NEGATIVE); PROTEIN NEGATIVE (NEGATIVE); RED CELLS - URINE >50 /hpf (0-5); UROBILINOGEN NORMAL (NORMAL); WHITE CELLS - URINE 0-5 /hpf (0-5)
[2017-11-25 21:33] LABS: BACTERIA FEW /hpf (NONE SEEN)
[2017-11-25 21:39] LABS: BASOPHILS 0.4 % (0-2); EOSINOPHILS 3.9 % (0-7); HEMATOCRIT 40.3 % (36.0-48.0); IMMATURE GRANULOCYTES 0.1 % (0-5); LYMPHOCYTES 32.5 % (15-50); MCHC 34.7 g/dL (31.0-37.0); MCV 89.2 fL (80.0-100.0); MEAN PLATELET VOLUME 11.4 fL (7.4-10.4); MONOCYTES 9.2 % (2-11); NEUTROPHILS 53.9 % (40-80); PLATELET COUNT 231 10x3/uL (130-400); RBC 4.52 10x6/uL (4.00-5.40); RDW 13.8 % (11.5-14.5); WBC 7.9 10x3/uL (4.8-10.8)
[2017-11-25 21:57] LABS: ALBUMIN 3.7 g/dL (3.4-5.0); ALKALINE PHOSPHATASE 57 U/L (46-116); ALT (SGPT) 21 U/L (10-68); BILIRUBIN - TOTAL 0.18 mg/dL (0.2-1.3); CALC OSMOLALITY 287 mosm/kg (275-300); CALCIUM 8.5 mg/dL (8.5-10.1); CARBON DIOXIDE 27.8 mmol/L (21.0-32.0); CHLORIDE - SERUM 107 mmol/L (98-107); CREATININE - SERUM 0.7 mg/dL (0.6-1.3); GLUCOSE 101 mg/dL (74-106); LIPASE 127 U/L (73-393); POTASSIUM - SERUM 3.9 mmol/L (3.5-5.1); PROTEIN - SERUM 7.4 g/dL (6.4-8.2); SODIUM 144 mmol/L (136-145); UREA NITROGEN 15 mg/dL (7-18); eGFR NON AFRICAN AMERICAN > 90 mL/min (90-120)
[2017-11-25 22:04] LABS: UDS - AMPHET NEGATIVE QUAL (NEGATIVE); UDS - BARB NEGATIVE QUAL (NEGATIVE); UDS - BENZO POSITIVE QUAL (NEGATIVE); UDS - COCAINE NEGATIVE QUAL (NEGATIVE); UDS - OPIATE POSITIVE QUAL (NEGATIVE); UDS - PCP NEGATIVE QUAL (NEGATIVE); UDS - THC NEGATIVE QUAL (NEGATIVE)
[2017-11-25 22:31] LABS: HCG URINE NEGATIVE (NEGATIVE)
== END 2017-11-26 00:13 | disposition home or self-care (01) ==
LOC: D.ER 20:53
PROVIDERS: Family Medicine; Physician Assistant Medical
DX: R10.9 Unspecified abdominal pain (principal); F17.200 Nicotine dependence, unspecified, uncomplicated

== ENCOUNTER 2017-11-27 12:16 | Emergency (ER) | payer MEDICAID ==
[2017-09-08 09:45] VITALS: BMI 26.6
[2017-11-27 12:54] LABS: APPEARANCE CLOUDY (CLEAR); BACTERIA FEW /hpf (NONE SEEN); BILIRUBIN NEGATIVE (NEGATIVE); COLOR RED (YELLOW); EPITHELIAL CELLS OCC /hpf (0-5); GLUCOSE NEGATIVE (NEGATIVE); KETONE NEGATIVE (NEGATIVE); MUCUS <1+ /lpf (NONE SEEN); NITRITE NEGATIVE (NEGATIVE); PROTEIN 1+ mg/dL (NEGATIVE); RED CELLS - URINE >50 /hpf (0-5); SPECIFIC GRAVITY 1.015 (1.005-1.020); UROBILINOGEN NORMAL (NORMAL)
[2017-11-27 12:55] LABS: TALC POWDER CRYSTALS 0-5 /hpf (NONE SEEN)
[2017-11-27 13:08] LABS: BASOPHILS 0.4 % (0-2); EOSINOPHILS 2.6 % (0-7); HEMATOCRIT 40.7 % (36.0-48.0); HEMOGLOBIN 13.8 g/dL (12-16); IMMATURE GRANULOCYTES 0.2 % (0-5); LYMPHOCYTES 36.5 % (15-50); MCHC 33.9 g/dL (31.0-37.0); MEAN PLATELET VOLUME 11.5 fL (7.4-10.4); MONOCYTES 8.5 % (2-11); NEUTROPHILS 51.8 % (40-80); PLATELET COUNT 218 10x3/uL (130-400); RBC 4.45 10x6/uL (4.00-5.40)
[2017-11-27 13:11] LABS: MCV 91.5 fL (80.0-100.0); WBC 10.5 10x3/uL (4.8-10.8)
[2017-11-27 13:23] LABS: HCG SERUM NEGATIVE (NEGATIVE)
[2017-11-27 14:12] LABS: ALKALINE PHOSPHATASE 56 U/L (46-116); ALT (SGPT) 23 U/L (10-68); BILIRUBIN - TOTAL 0.31 mg/dL (0.2-1.3); CARBON DIOXIDE 26.3 mmol/L (21.0-32.0); CHLORIDE - SERUM 104 mmol/L (98-107); CREATININE - SERUM 0.8 mg/dL (0.6-1.3); GLUCOSE 87 mg/dL (74-106); POTASSIUM - SERUM 3.7 mmol/L (3.5-5.1); PROTEIN - SERUM 7.6 g/dL (6.4-8.2); SODIUM 142 mmol/L (136-145); eGFR NON AFRICAN AMERICAN > 90 mL/min (90-120)
[2017-11-27 14:13] LABS: CALC OSMOLALITY 280 mosm/kg (275-300); UREA NITROGEN 9 mg/dL (7-18)
== END 2017-11-27 14:45 | disposition home or self-care (01) ==
LOC: D.ER 12:16
PROVIDERS: Emergency Medicine; Physician Assistant
DX: R10.31 Right lower quadrant pain (principal); R10.32 Left lower quadrant pain; K92.1 Melena; N93.9 Abnormal uterine and vaginal bleeding, unspecified; N39.0 Urinary tract infection, site not specified; F17.200 Nicotine dependence, unspecified, uncomplicated

== ENCOUNTER 2017-12-23 11:27 | Inpatient (IN) | payer MEDICAID ==
[2017-09-08 09:45] VITALS: Ht 160 cm; Wt 70.3 kg
[~2017-12-23] VITALS: Ht 160 cm; Wt 70.3 kg
[2017-12-23 12:16] LABS: APPEARANCE HAZY (CLEAR); BILIRUBIN NEGATIVE (NEGATIVE); COLOR YELLOW (YELLOW); GLUCOSE NEGATIVE (NEGATIVE); KETONE NEGATIVE (NEGATIVE); NITRITE NEGATIVE (NEGATIVE); PROTEIN NEGATIVE (NEGATIVE); SPECIFIC GRAVITY 1.015 (1.005-1.020); UROBILINOGEN NORMAL (NORMAL)
[2017-12-23 12:53] LABS: BASOPHILS 0.3 % (0-2); HEMATOCRIT 41.1 % (36.0-48.0); HEMOGLOBIN 14.4 g/dL (12-16); IMMATURE GRANULOCYTES 0.1 % (0-5); LYMPHOCYTES 34.5 % (15-50); MCH 30.9 pg (26.0-34.0); MCV 88.2 fL (80.0-100.0); MEAN PLATELET VOLUME 11.3 fL (7.4-10.4); MONOCYTES 13.6 % (2-11); NEUTROPHILS 49.5 % (40-80); PLATELET COUNT 220 10x3/uL (130-400); RBC 4.66 10x6/uL (4.00-5.40); RDW 13.5 % (11.5-14.5); WBC 13.5 10x3/uL (4.8-10.8)
[2017-12-23 13:12] LABS: ALBUMIN 4.1 g/dL (3.4-5.0); ALKALINE PHOSPHATASE 80 U/L (46-116); ALT (SGPT) 47 U/L (10-68); BILIRUBIN - TOTAL 0.79 mg/dL (0.2-1.3); CALC OSMOLALITY 277 mosm/kg (275-300); CALCIUM 9.5 mg/dL (8.5-10.1); CARBON DIOXIDE 23.6 mmol/L (21.0-32.0); CHLORIDE - SERUM 105 mmol/L (98-107); CREATININE - SERUM 0.7 mg/dL (0.6-1.3); GLUCOSE 92 mg/dL (74-106); POTASSIUM - SERUM 3.7 mmol/L (3.5-5.1); PROTEIN - SERUM 7.7 g/dL (6.4-8.2); SODIUM 140 mmol/L (136-145); UREA NITROGEN 10 mg/dL (7-18); eGFR NON AFRICAN AMERICAN > 90 mL/min (90-120)
[2017-12-23] MEDS ORDERED: EMBEDA PO (20:35)
[2017-12-23 23:01] VITALS: BP 136/74
== END 2017-12-23 22:37 | disposition home or self-care (01) | DRG 690 ==
LOC: D.ER 11:27 → D.MS 16:15 → D.EDHOLD 16:15 → D.MS 17:14
PROVIDERS: Family Medicine; Nurse Practitioner Family
DX: N30.10 Interstitial cystitis (chronic) without hematuria (principal); F17.203 Nicotine dependence unspecified, with withdrawal; N81.10 Cystocele, unspecified; D72.829 Elevated white blood cell count, unspecified; F41.8 Other specified anxiety disorders; Z90.710 Acquired absence of both cervix and uterus

== ENCOUNTER 2018-03-23 02:13 | Emergency (ER) | payer MEDICAID ==
[~2018-03-23] VITALS: Ht 160 cm; Wt 59.1 kg
[~2018-03-23 02:13] MED LIST changes: +EMBEDA PO
[2018-03-23 02:18] VITALS: Ht 160 cm; Wt 59.1 kg
[2018-03-23 02:50] LABS: APPEARANCE CLOUDY (CLEAR); BACTERIA NONE SEEN /hpf (NONE SEEN); BILIRUBIN NEGATIVE (NEGATIVE); COLOR PINK (YELLOW); EPITHELIAL CELLS NSEEN /hpf (0-5); GLUCOSE NEGATIVE (NEGATIVE); KETONE NEGATIVE (NEGATIVE); NITRITE NEGATIVE (NEGATIVE); PROTEIN NEGATIVE (NEGATIVE); RED CELLS - URINE >50 /hpf (0-5); UROBILINOGEN NORMAL (NORMAL); WHITE CELLS - URINE NSEEN /hpf (0-5)
[2018-03-23 03:02] LABS: BASOPHILS 0.3 % (0-2); EOSINOPHILS 3.6 % (0-7); HEMATOCRIT 40.1 % (36.0-48.0); IMMATURE GRANULOCYTES 0.1 % (0-5); LYMPHOCYTES 43.2 % (15-50); MCHC 34.9 g/dL (31.0-37.0); MCV 88.7 fL (80.0-100.0); MEAN PLATELET VOLUME 10.7 fL (7.4-10.4); MONOCYTES 10.1 % (2-11); NEUTROPHILS 42.7 % (40-80); PLATELET COUNT 240 10x3/uL (130-400); RBC 4.52 10x6/uL (4.00-5.40); RDW 13.2 % (11.5-14.5); WBC 7.8 10x3/uL (4.8-10.8)
[2018-03-23 03:27] LABS: ALKALINE PHOSPHATASE 65 U/L (46-116); ALT (SGPT) 20 U/L (10-68); BILIRUBIN - TOTAL 0.22 mg/dL (0.2-1.3); CALC OSMOLALITY 277 mosm/kg (275-300); CARBON DIOXIDE 31.3 mmol/L (21.0-32.0); CHLORIDE - SERUM 103 mmol/L (98-107); CREATININE - SERUM 0.6 mg/dL (0.6-1.3); GLUCOSE 93 mg/dL (74-106); POTASSIUM - SERUM 4.1 mmol/L (3.5-5.1); PROTEIN - SERUM 7.5 g/dL (6.4-8.2); SODIUM 140 mmol/L (136-145); UREA NITROGEN 9 mg/dL (7-18); eGFR NON AFRICAN AMERICAN > 90 mL/min (90-120)
[2018-03-23] MEDS ORDERED: PERCOCET 5-3251 TAB PO (09:25)
[2018-03-23 09:40] VITALS: BP 107/68
== END 2018-03-23 09:41 | disposition home or self-care (01) ==
LOC: D.ER 02:13
PROVIDERS: Family Medicine
DX: N81.2 Incomplete uterovaginal prolapse (principal); F17.200 Nicotine dependence, unspecified, uncomplicated

== ENCOUNTER 2018-05-05 17:40 | Emergency (ER) | payer MEDICAID ==
[~2018-05-05] VITALS: Ht 160 cm; Wt 68.2 kg
[~2018-05-05 17:40] MED LIST changes: +PERCOCET 5-3251 TAB PO
[2018-05-05 17:43] VITALS: Ht 160 cm; Wt 68.2 kg
[2018-05-05 18:14] LABS: BASOPHILS 0.2 % (0-2); EOSINOPHILS 1.7 % (0-7); HEMATOCRIT 42.4 % (36.0-48.0); HEMOGLOBIN 15.2 g/dL (12-16); IMMATURE GRANULOCYTES 0.2 % (0-5); LYMPHOCYTES 31.3 % (15-50); MCHC 35.8 g/dL (31.0-37.0); MCV 89.3 fL (80.0-100.0); MEAN PLATELET VOLUME 11.2 fL (7.4-10.4); MONOCYTES 12.6 % (2-11); PLATELET COUNT 258 10x3/uL (130-400); RBC 4.75 10x6/uL (4.00-5.40); RDW 13.1 % (11.5-14.5); WBC 8.9 10x3/uL (4.8-10.8)
[2018-05-05 18:25] LABS: ALBUMIN 4.4 g/dL (3.4-5.0); ALKALINE PHOSPHATASE 66 U/L (46-116); ALT (SGPT) 27 U/L (10-68); BILIRUBIN - TOTAL 0.28 mg/dL (0.2-1.3); CALC OSMOLALITY 280 mosm/kg (275-300); CALCIUM 9.2 mg/dL (8.5-10.1); CHLORIDE - SERUM 101 mmol/L (98-107); CREATININE - SERUM 0.6 mg/dL (0.6-1.3); GLUCOSE 90 mg/dL (74-106); POTASSIUM - SERUM 3.8 mmol/L (3.5-5.1); PROTEIN - SERUM 8.5 g/dL (6.4-8.2); SODIUM 142 mmol/L (136-145); UREA NITROGEN 8 mg/dL (7-18); eGFR NON AFRICAN AMERICAN > 90 mL/min (90-120)
[2018-05-05 18:32] LABS: APPEARANCE CLEAR (CLEAR); COLOR YELLOW (YELLOW)
[2018-05-05 18:33] LABS: BILIRUBIN NEGATIVE (NEGATIVE); GLUCOSE NEGATIVE (NEGATIVE); KETONE NEGATIVE (NEGATIVE); NITRITE NEGATIVE (NEGATIVE); PROTEIN NEGATIVE (NEGATIVE); UROBILINOGEN NORMAL (NORMAL)
[2018-05-05 18:35] LABS: WHITE CELLS - URINE 0-5 /hpf (0-5)
[2018-05-05 18:36] LABS: BACTERIA FEW /hpf (NONE SEEN); EPITHELIAL CELLS OCC /hpf (0-5); RED CELLS - URINE OCC /hpf (0-5); UDS - AMPHET NEGATIVE QUAL (NEGATIVE); UDS - BARB NEGATIVE QUAL (NEGATIVE); UDS - BENZO NEGATIVE QUAL (NEGATIVE); UDS - COCAINE NEGATIVE QUAL (NEGATIVE); UDS - OPIATE NEGATIVE QUAL (NEGATIVE); UDS - PCP NEGATIVE QUAL (NEGATIVE); UDS - THC NEGATIVE QUAL (NEGATIVE)
[2018-05-06 11:56] LABS: HCG URINE NEGATIVE (NEGATIVE)
[2018-05-06] MEDS ORDERED: MACROBID100 MG PO (12:33)
[2018-05-06 13:15] VITALS: BP 118/72
== END 2018-05-06 13:18 | disposition other institution (70) ==
LOC: D.ER 17:40
PROVIDERS: Family Medicine
DX: F32.9 Major depressive disorder, single episode, unspecified (principal); R45.851 Suicidal ideations; N39.0 Urinary tract infection, site not specified

== ENCOUNTER 2018-05-10 03:16 | Emergency (ER) | payer MEDICAID ==
[~2018-05-10] VITALS: Ht 160 cm; Wt 68.2 kg
[~2018-05-10 03:16] MED LIST changes: +MACROBID100 MG PO
[2018-05-10 03:21] VITALS: Ht 160 cm; Wt 68.2 kg
[2018-05-10 03:49] LABS: BASOPHILS 0.3 % (0-2); EOSINOPHILS 2.8 % (0-7); HEMATOCRIT 42.5 % (36.0-48.0); HEMOGLOBIN 14.9 g/dL (12-16); IMMATURE GRANULOCYTES 0.2 % (0-5); LYMPHOCYTES 33.9 % (15-50); MCH 31.3 pg (26.0-34.0); MCHC 35.1 g/dL (31.0-37.0); MCV 89.3 fL (80.0-100.0); MEAN PLATELET VOLUME 11.5 fL (7.4-10.4); MONOCYTES 9.9 % (2-11); NEUTROPHILS 52.9 % (40-80); PLATELET COUNT 259 10x3/uL (130-400); RBC 4.76 10x6/uL (4.00-5.40); RDW 12.7 % (11.5-14.5); WBC 9.6 10x3/uL (4.8-10.8)
[2018-05-10 03:50] LABS: APPEARANCE CLEAR (CLEAR); BILIRUBIN NEGATIVE (NEGATIVE); COLOR YELLOW (YELLOW); GLUCOSE NEGATIVE (NEGATIVE); KETONE NEGATIVE (NEGATIVE); NITRITE NEGATIVE (NEGATIVE); PROTEIN NEGATIVE (NEGATIVE); UROBILINOGEN NORMAL (NORMAL)
[2018-05-10 03:56] LABS: UDS - AMPHET NEGATIVE QUAL (NEGATIVE); UDS - BARB NEGATIVE QUAL (NEGATIVE); UDS - BENZO NEGATIVE QUAL (NEGATIVE); UDS - COCAINE NEGATIVE QUAL (NEGATIVE); UDS - OPIATE POSITIVE QUAL (NEGATIVE); UDS - PCP NEGATIVE QUAL (NEGATIVE); UDS - THC NEGATIVE QUAL (NEGATIVE)
[2018-05-10 04:04] LABS: ALBUMIN 4.4 g/dL (3.4-5.0); ALKALINE PHOSPHATASE 62 U/L (46-116); ALT (SGPT) 22 U/L (10-68); BILIRUBIN - TOTAL 0.14 mg/dL (0.2-1.3); CALC OSMOLALITY 281 mosm/kg (275-300); CALCIUM 9.2 mg/dL (8.5-10.1); CHLORIDE - SERUM 102 mmol/L (98-107); CREATININE - SERUM 0.7 mg/dL (0.6-1.3); GLUCOSE 102 mg/dL (74-106); POTASSIUM - SERUM 4.5 mmol/L (3.5-5.1); PROTEIN - SERUM 8.5 g/dL (6.4-8.2); SODIUM 141 mmol/L (136-145); UREA NITROGEN 16 mg/dL (7-18); eGFR NON AFRICAN AMERICAN > 90 mL/min (90-120)
[2018-05-10 04:06] LABS: HCG SERUM NEGATIVE (NEGATIVE)
[2018-05-10 05:36] VITALS: BP 112/83
== END 2018-05-10 06:36 ==
LOC: D.ER 03:16
PROVIDERS: Emergency Medicine
DX: F32.9 Major depressive disorder, single episode, unspecified (principal); F41.9 Anxiety disorder, unspecified; Z91.5 Personal history of self-harm; F41.0 Panic disorder [episodic paroxysmal anxiety]; R45.851 Suicidal ideations

== ENCOUNTER 2018-06-23 14:42 | Observation (INO) | payer MEDICAID ==
[~2018-06-23] VITALS: Ht 160 cm; Wt 75.0 kg
--- NOTE | ~2018-06-23 | MORECARE ---
CASE MANAGEMENT DISCHARGE SUMMARY PATIENT: SUSANA ZARAGOZA HOPE UNIT: [id number] ADM DATE: 06/23/18 AGE: 28 : [birth year] SEX: F ROOM/BED: D.2231 AUTHOR: SONIA LANGLEY PHYSICIAN: REFERRING PHYSICIAN: LUC LI MD DATE OF SERVICE: 06/25/18 Discharge Plan Patient Name: SUSANA ZARAGOZA Facility: [facility]:[place] : 1990 Planned Disposition: Home Anticipated Discharge Date: Discharge Date: Expected LOS: Initial Reviewer: [email or web address] Initial Review Date: 06/24/2018 Generated: 06/25/18 10:07 am Comments DCP- Discharge Planning Updated by [email or web address]: Cecilai Warren on 06/25/18 8:[address] Patient Name: SUSANA ZARAGOZA Encounter No: [id number] : 1990 Primary Insurance: MEDICAID [place] Anticipated DC Date: Planned Disposition: Home External Planned Provider: : DCP follow-up note: Patient in agreement with discharge plan. No changes to plan. Case management will follow and assist as needed. Cecilia Warren DCP- Discharge Planning Updated by [email or web address]: Cecilia Warren on 06/24/18 7:[address] Patient Name: SUSANA ZARAGOZA Admission Status: ER Accout number: [id number] Admission Date: 06-23-2018 : 1990 Admission Diagnosis: Attending: LUC LI Current LOS: 1 Anticipated DC Date: Planned Disposition: Home Primary Insurance: MEDICAID [place] Discharge Planning Comments: CM met with patient, she is alone in the room. States she is independent with all ADL's and IADL's. States she lives with her sister in law and children. States sometimes her is there. States her (Triston Floyd) should take her home on discharge. Instructed she was NPO for surgery today, voiced understanding. She is asking to see Dr. Li, I informed him. No needs identified at this time. CM will continue to follow and assist with discharge planning/needs. Bindery Machine Tender: Cecilia Warren DCPIA - Discharge Planning Initial Assessment Updated by [email or web address]: Cecilia Warren on 06/24/18 8:37 am * Is the patient Alert and Oriented? Yes * PCP Diana Verde at [facility] * Pharmacy [facility] on [address] * Preadmission Environment Home with Family * ADLs Independent * Equipment None * List name and contact numbers for known caregivers / representatives who currently or will assist patient after discharge: Triston Floyd - [phone] * Verbal permission to speak to the caregivers and representatives has been obtained from the patient. Yes * Community resources currently utilized None * Additional services required to return to the preadmission environment? No * Can the patient safely return to the preadmission environment? Yes * Has this patient been hospitalized within the prior 30 days at any hospital? No Last DP export: 06/24/18 7:44 Patient Name: SUSANA ZARAGOZA Page [id number] at 0907 All edits/amendments must be made on the electronic document DICTATION DATE: 06/25/18906 HONEY LIQUEFIER: LAN 06/25/18906 RPT#: [id number] DC DATE: STATUS: ADM IN [facility] [address] [place] [address] END OF REPORT
--- NOTE | ~2018-06-23 | MORECARE ---
CASE MANAGEMENT DISCHARGE SUMMARY PATIENT: SUSANA ZARAGOZA HOPE UNIT: [id number] ADM DATE: 06/23/18 AGE: 28 : [birth year] SEX: F ROOM/BED: D.2231 AUTHOR: SONIA LANGLEY PHYSICIAN: REFERRING PHYSICIAN: LUC LI MD DATE OF SERVICE: 06/27/18 Discharge Plan Patient Name: SUSANA ZARAGOZA Facility: [facility]:[place] : 1990 Planned Disposition: Home Anticipated Discharge Date: Discharge Date: 06/25/2018 Expected LOS: 0 Initial Reviewer: [email or web address] Initial Review Date: 06/24/2018 Generated: 06/27/18 5:58 pm Comments DCP- Discharge Planning Updated by [email or web address]: Cecilia Warren on 06/25/18 8:[address] Patient Name: SUSANA ZARAGOZA Encounter No: [id number] : 1990 Primary Insurance: MEDICAID [place] Anticipated DC Date: Planned Disposition: Home External Planned Provider: : DCP follow-up note: Patient in agreement with discharge plan. No changes to plan. Case management will follow and assist as needed. Cecilia Warren DCP- Discharge Planning Updated by [email or web address]: Cecilia Warren on 06/24/18 7:[address] Patient Name: SUSANA ZARAGOZA Admission Status: ER Accout number: [id number] Admission Date: 06-23-2018 : 1990 Admission Diagnosis: Attending: LUC LI Current LOS: 1 Anticipated DC Date: Planned Disposition: Home Primary Insurance: MEDICAID [place] Discharge Planning Comments: CM met with patient, she is alone in the room. States she is independent with all ADL's and IADL's. States she lives with her sister in law and children. States sometimes her is there. States her (Triston Floyd) should take her home on discharge. Instructed she was NPO for surgery today, voiced understanding. She is asking to see Dr. Li, I informed him. No needs identified at this time. CM will continue to follow and assist with discharge planning/needs. Lining Maker Hand: Cecilia Warren DCPIA - Discharge Planning Initial Assessment Updated by [email or web address]: Cecilia Kelvin on 06/24/18 8:37 am * Is the patient Alert and Oriented? Yes * PCP Diana Verde at [facility] * Pharmacy [facility] on [place] * Preadmission Environment Home with Family * ADLs Independent * Equipment None * List name and contact numbers for known caregivers / representatives who currently or will assist patient after discharge: Triston Floyd - [phone] * Verbal permission to speak to the caregivers and representatives has been obtained from the patient. Yes * Community resources currently utilized None * Additional services required to return to the preadmission environment? No * Can the patient safely return to the preadmission environment? Yes * Has this patient been hospitalized within the prior 30 days at any hospital? No Last DP export: 06/25/18 8:07 Patient Name: SUSANA ZARAGOZA Page 30038 at 1659 All edits/amendments must be made on the electronic document DICTATION DATE: 06/27/181657 REQUISITION APPROVER: LAN 06/27/181657 RPT#: [id number] DC DATE:06/25/18 STATUS: DIS IN [facility] [address] [place] [address] END OF REPORT
--- NOTE | ~2018-06-23 | MORECARE ---
CASE MANAGEMENT DISCHARGE SUMMARY PATIENT: SUSANA ZARAGOZA HOPE UNIT: [id number] ADM DATE: 06/23/18 AGE: 28 : [birth year] SEX: F ROOM/BED: D.2231 AUTHOR: KORIN,DOC PHYSICIAN: REFERRING PHYSICIAN: LUC LI MD DATE OF SERVICE: 06/24/18 Discharge Plan Patient Name: SUSANA ZARAGOZA Facility: [facility]:[place] : 1990 Planned Disposition: Home Anticipated Discharge Date: Discharge Date: Expected LOS: Initial Reviewer: [email or web address] Initial Review Date: 06/24/2018 Generated: 06/24/18 9:44 am Comments DCP- Discharge Planning Updated by [email or web address]: Cecilia Warren on 06/24/18 7:[address] Patient Name: SUSANA ZARAGOZA Admission Status: ER Accout number: [id number] Admission Date: 06-23-2018 : 1990 Admission Diagnosis: Attending: LUC LI Current LOS: 1 Anticipated DC Date: Planned Disposition: Home Primary Insurance: MEDICAID [place] Discharge Planning Comments: CM met with patient, she is alone in the room. States she is independent with all ADL's and IADL's. States she lives with her sister in law and children. States sometimes her is there. States her (Triston Floyd) should take her home on discharge. Instructed she was NPO for surgery today, voiced understanding. She is asking to see Dr. Li, I informed him. No needs identified at this time. CM will continue to follow and assist with discharge planning/needs. Brazing Machine Setter: Cecilia Warren DCPIA - Discharge Planning Initial Assessment Updated by [email or web address]: Cecilia Warren on 06/24/18 8:37 am * Is the patient Alert and Oriented? Yes * PCP Diana Verde at [facility] * Pharmacy [facility] [address] * Preadmission Environment Home with Family * ADLs Independent * Equipment None * List name and contact numbers for known caregivers / representatives who currently or will assist patient after discharge: Triston Floyd - [phone] * Verbal permission to speak to the caregivers and representatives has been obtained from the patient. Yes * Community resources currently utilized None * Additional services required to return to the preadmission environment? No * Can the patient safely return to the preadmission environment? Yes * Has this patient been hospitalized within the prior 30 days at any hospital? No Last DP export: 06/24/18 7:38 Patient Name: SUSANA ZARAGOZA Page 03492 at 0844 All edits/amendments must be made on the electronic document DICTATION DATE: 06/24/18843 HEAVY DUTY CUSTODIAN: LAN 06/24/18843 RPT#: [id number] DC DATE: STATUS: ADM IN [facility] [address] [place] [address] END OF REPORT
--- NOTE | ~2018-06-23 | MORECARE ---
CASE MANAGEMENT DISCHARGE SUMMARY PATIENT: SUSANA ZARAGOZA HOPE UNIT: [id number] ADM DATE: 06/23/18 AGE: 28 : [birth year] SEX: F ROOM/BED: D.2231 AUTHOR: SONIA LANGLEY PHYSICIAN: REFERRING PHYSICIAN: LUC LI MD DATE OF SERVICE: 06/24/18 Discharge Plan Patient Name: SUSANA ZARAGOZA [facility] [facility] 1990 Planned Disposition: Home Anticipated Discharge Date: Discharge Date: Expected LOS: Initial Reviewer: [email or web address] Initial Review Date: 06/24/2018 Generated: 06/24/18 9:38 am DCPIA - Discharge Planning Initial Assessment Updated by [email or web address]: Cecilia Warren on 06/24/18 8:37 am * Is the patient Alert and Oriented? Yes * PCP Diana Verde at [facility] * Pharmacy [facility] on [address] * Preadmission Environment Home with Family * ADLs Independent * Equipment None * List name and contact numbers for known caregivers / representatives who currently or will assist patient after discharge: Triston Floyd - [phone] * Verbal permission to speak to the caregivers and representatives has been obtained from the patient. Yes * Community resources currently utilized None * Additional services required to return to the preadmission environment? No * Can the patient safely return to the preadmission environment? Yes * Has this patient been hospitalized within the prior 30 days at any hospital? No Patient Name: SUSANA ZARAGOZA Page 05896 at 0838 All edits/amendments must be made on the electronic document DICTATION DATE: 06/24/18836 CLINICAL SYSTEMS EDUCATOR: LAN 06/24/18836 RPT#: [id number] DC DATE: STATUS: ADM IN [facility] [address] [place] [address] END OF REPORT
[2018-06-23 15:51] LABS: BASOPHILS 0.2 % (0-2); EOSINOPHILS 3.1 % (0-7); HEMATOCRIT 41.3 % (36.0-48.0); IMMATURE GRANULOCYTES 0.1 % (0-5); LYMPHOCYTES 36.7 % (15-50); MCH 31.3 pg (26.0-34.0); MCHC 33.9 g/dL (31.0-37.0); MCV 92.4 fL (80.0-100.0); MEAN PLATELET VOLUME 11.4 fL (7.4-10.4); MONOCYTES 9.6 % (2-11); NEUTROPHILS 50.3 % (40-80); PLATELET COUNT 239 10x3/uL (130-400); RBC 4.47 10x6/uL (4.00-5.40); RDW 13.4 % (11.5-14.5); WBC 8.1 10x3/uL (4.8-10.8)
[2018-06-23 16:03] LABS: APTT 27.3 SECONDS (22.8-39.4); INR 0.93 (0.85-1.17); PROTIME 12.1 SECONDS (11.6-15.0)
[2018-06-23 16:13] LABS: ALBUMIN 3.8 g/dL (3.4-5.0); ALKALINE PHOSPHATASE 68 U/L (46-116); ALT (SGPT) 38 U/L (10-68); BILIRUBIN - TOTAL 0.15 mg/dL (0.2-1.3); CALC OSMOLALITY 272 mosm/kg (275-300); CARBON DIOXIDE 28.8 mmol/L (21.0-32.0); CHLORIDE - SERUM 101 mmol/L (98-107); CREATININE - SERUM 0.7 mg/dL (0.6-1.3); GLUCOSE 88 mg/dL (74-106); POTASSIUM - SERUM 4.4 mmol/L (3.5-5.1); PROTEIN - SERUM 7.7 g/dL (6.4-8.2); SODIUM 137 mmol/L (136-145); UREA NITROGEN 12 mg/dL (7-18); eGFR NON AFRICAN AMERICAN > 90 mL/min (90-120)
[2018-06-23 17:17] LABS: APPEARANCE CLEAR (CLEAR); BILIRUBIN NEGATIVE (NEGATIVE); COLOR YELLOW (YELLOW); GLUCOSE NEGATIVE (NEGATIVE); KETONE NEGATIVE (NEGATIVE); NITRITE NEGATIVE (NEGATIVE); PROTEIN NEGATIVE (NEGATIVE); RED CELLS - URINE 25-50 /hpf (0-5); UROBILINOGEN NORMAL (NORMAL); WHITE CELLS - URINE 0-5 /hpf (0-5)
[2018-06-23 17:18] LABS: BACTERIA FEW /hpf (NONE SEEN); EPITHELIAL CELLS 0-5 /hpf (0-5)
[2018-06-23] MEDS ORDERED: ELMIRON100 MG PO (17:47)
[2018-06-23] MEDS ORDERED: BETAPACE 80 MG80 MG PO (17:48)
[2018-06-23] MEDS ORDERED: REXULTI1 MG PO (17:48)
[2018-06-23] MEDS ORDERED: ADDERALL 20 MG20 M1 PO (17:49)
[2018-06-23] MEDS ORDERED: XANAX1 MG PO (17:50)
[2018-06-23] MEDS ORDERED: SOMA350 MG PO (17:50)
[2018-06-23 19:52] VITALS: BP 115/78; BMI 29.2
[2018-06-23 20:00] VITALS: BP 106/69
[2018-06-24 06:00] VITALS: BP 99/53
[2018-06-24 08:45] VITALS: BP 110/65
[2018-06-24 12:45] VITALS: BP 93/57
[2018-06-24 17:03] VITALS: Ht 160 cm; Wt 75.0 kg
[2018-06-24 18:10] VITALS: BP 101/63
[2018-06-24 20:00] VITALS: BP 92/42
[2018-06-25 06:00] VITALS: BP 113/73
[2018-06-25] MEDS ORDERED: OXYCODONE HCL5 M1 PO (08:05)
[2018-06-25] MEDS ORDERED: VALIUM5 MG PO (08:06)
[2018-06-25 09:28] VITALS: BP 117/79
[2018-06-25] MEDS ORDERED: TUCKS MEDICATE1 EACH TOPICAL (11:40)
[2018-06-25] MEDS ORDERED: MIRALAX17 GM PO (11:40)
== END 2018-06-25 12:04 | disposition home or self-care (01) ==
LOC: D.ER 14:42 → D.EDHOLD 16:38 → OBSVTIME 16:38 → D.MS 16:38
PROVIDERS: Emergency Medicine
DX: K62.3 Rectal prolapse (principal); K64.3 Fourth degree hemorrhoids; N81.2 Incomplete uterovaginal prolapse; F17.200 Nicotine dependence, unspecified, uncomplicated; F11.20 Opioid dependence, uncomplicated

== ENCOUNTER 2018-07-23 22:28 | Emergency (ER) | payer MEDICAID ==
[~2018-07-23] VITALS: Ht 160 cm; Wt 75.9 kg
[~2018-07-23 22:28] MED LIST changes: +BETAPACE 80 MG80 MG PO; +MIRALAX17 GM PO; +OXYCODONE HCL5 M1 PO; +REXULTI1 MG PO; +SOMA350 MG PO; +TUCKS MEDICATE1 EACH TOPICAL; +VALIUM5 MG PO; +XANAX1 MG PO
[2018-07-23 22:50] VITALS: Ht 160 cm; Wt 75.9 kg
[2018-07-23 23:49] LABS: HEMATOCRIT 42.3 % (36.0-48.0); HEMOGLOBIN 14.7 g/dL (12-16); LYMPHOCYTES 32.6 % (15-50); MCH 31.1 pg (26.0-34.0); MCHC 34.8 g/dL (31.0-37.0); MCV 89.4 fL (80.0-100.0); MEAN PLATELET VOLUME 11.3 fL (7.4-10.4); NEUTROPHILS 53.8 % (40-80); PLATELET COUNT 199 10x3/uL (130-400); RBC 4.73 10x6/uL (4.00-5.40); RDW 12.4 % (11.5-14.5)
[2018-07-23 23:58] LABS: ALBUMIN 3.7 g/dL (3.4-5.0); ALKALINE PHOSPHATASE 71 U/L (46-116); ALT (SGPT) 21 U/L (10-68); BILIRUBIN - TOTAL 0.21 mg/dL (0.2-1.3); CALC OSMOLALITY 275 mosm/kg (275-300); CALCIUM 8.7 mg/dL (8.5-10.1); CARBON DIOXIDE 28.4 mmol/L (21.0-32.0); CHLORIDE - SERUM 101 mmol/L (98-107); CREATININE - SERUM 0.6 mg/dL (0.6-1.3); GLUCOSE 91 mg/dL (74-106); POTASSIUM - SERUM 3.7 mmol/L (3.5-5.1); SODIUM 139 mmol/L (136-145); UREA NITROGEN 8 mg/dL (7-18); eGFR NON AFRICAN AMERICAN > 90 mL/min (90-120)
[2018-07-24] MEDS ORDERED: TYLENOL W/CODEI1 TAB PO (00:36)
[2018-07-24 01:16] VITALS: BP 142/90
== END 2018-07-24 01:19 | disposition home or self-care (01) ==
LOC: D.ER 22:28
PROVIDERS: Family Medicine
DX: L03.211 Cellulitis of face (principal); Z86.73 Personal history of transient ischemic attack (TIA), and cerebral infarction without residual deficits; F17.200 Nicotine dependence, unspecified, uncomplicated

== ENCOUNTER 2018-08-01 21:08 | Emergency (ER) | payer MEDICAID ==
[2018-08-01 22:33] LABS: BASOPHILS 0.3 % (0-2); EOSINOPHILS 3.3 % (0-7); HEMOGLOBIN 14.8 g/dL (12-16); IMMATURE GRANULOCYTES 0.2 % (0-5); LYMPHOCYTES 32.1 % (15-50); MCH 31.2 pg (26.0-34.0); MCHC 35.2 g/dL (31.0-37.0); MCV 88.6 fL (80.0-100.0); MEAN PLATELET VOLUME 11.5 fL (7.4-10.4); MONOCYTES 9.4 % (2-11); NEUTROPHILS 54.7 % (40-80); RBC 4.74 10x6/uL (4.00-5.40); RDW 12.6 % (11.5-14.5); WBC 9.5 10x3/uL (4.8-10.8)
[2018-08-01 22:34] LABS: PLATELET COUNT 298 10x3/uL (130-400)
[2018-08-01 22:46] LABS: ALBUMIN 3.8 g/dL (3.4-5.0); ALKALINE PHOSPHATASE 82 U/L (46-116); ALT (SGPT) 17 U/L (10-68); BILIRUBIN - TOTAL 0.09 mg/dL (0.2-1.3); CALC OSMOLALITY 275 mosm/kg (275-300); CALCIUM 9.4 mg/dL (8.5-10.1); CARBON DIOXIDE 27.7 mmol/L (21.0-32.0); CHLORIDE - SERUM 103 mmol/L (98-107); CREATININE - SERUM 0.7 mg/dL (0.6-1.3); GLUCOSE 93 mg/dL (74-106); POTASSIUM - SERUM 4.1 mmol/L (3.5-5.1); PROTEIN - SERUM 8.3 g/dL (6.4-8.2); SODIUM 138 mmol/L (136-145); UREA NITROGEN 13 mg/dL (7-18); eGFR NON AFRICAN AMERICAN > 90 mL/min (90-120)
== END 2018-08-02 01:06 | disposition home or self-care (01) ==
LOC: D.ER 21:08
PROVIDERS: Emergency Medicine
DX: J18.9 Pneumonia, unspecified organism (principal); R09.89 Other specified symptoms and signs involving the circulatory and respiratory systems; F17.200 Nicotine dependence, unspecified, uncomplicated

== ENCOUNTER 2018-10-08 18:58 | Emergency (ER) | payer MEDICAID ==
[~2018-10-08] VITALS: Ht 160 cm; Wt 77.7 kg
[~2018-10-08 18:58] MED LIST changes: +MEDROL DOSE PACK4 MG PO; +OMNICEF300 MG PO; +TYLENOL W/CODEI1 TAB PO
[2018-10-08 19:19] VITALS: Ht 160 cm; Wt 77.7 kg
[2018-10-08] MEDS ORDERED: BETAPACE160 MG PO (19:21)
[2018-10-08] MEDS ORDERED: TRAZODONE HCL150 MG PO (19:21)
[2018-10-08 20:04] LABS: UDS - AMPHET POSITIVE QUAL (NEGATIVE); UDS - BARB NEGATIVE QUAL (NEGATIVE); UDS - BENZO POSITIVE QUAL (NEGATIVE); UDS - COCAINE NEGATIVE QUAL (NEGATIVE); UDS - OPIATE NEGATIVE QUAL (NEGATIVE); UDS - PCP NEGATIVE QUAL (NEGATIVE); UDS - THC NEGATIVE QUAL (NEGATIVE)
[2018-10-08 20:12] LABS: APPEARANCE HAZY (CLEAR); BILIRUBIN NEGATIVE (NEGATIVE); COLOR YELLOW (YELLOW); EPITHELIAL CELLS OCC /hpf (0-5); GLUCOSE NEGATIVE (NEGATIVE); KETONE NEGATIVE (NEGATIVE); NITRITE NEGATIVE (NEGATIVE); PROTEIN NEGATIVE (NEGATIVE); RED CELLS - URINE >50 /hpf (0-5); UROBILINOGEN NORMAL (NORMAL); WHITE CELLS - URINE 0-5 /hpf (0-5)
[2018-10-08 20:13] LABS: BACTERIA FEW /hpf (NONE SEEN)
[2018-10-08 20:25] LABS: BASOPHILS 0.3 % (0-2); EOSINOPHILS 3.5 % (0-7); HEMATOCRIT 40.6 % (36.0-48.0); HEMOGLOBIN 13.7 g/dL (12-16); IMMATURE GRANULOCYTES 0.2 % (0-5); LYMPHOCYTES 34.1 % (15-50); MCHC 33.7 g/dL (31.0-37.0); MCV 88.8 fL (80.0-100.0); MEAN PLATELET VOLUME 11.1 fL (7.4-10.4); MONOCYTES 11.4 % (2-11); NEUTROPHILS 50.5 % (40-80); PLATELET COUNT 255 10x3/uL (130-400); RBC 4.57 10x6/uL (4.00-5.40); RDW 14.2 % (11.5-14.5); WBC 6.7 10x3/uL (4.8-10.8)
[2018-10-08 20:40] LABS: ACETAMINOPHEN 2.7 ug/mL (10.0-30.0); ALBUMIN 3.8 g/dL (3.4-5.0); ALKALINE PHOSPHATASE 72 U/L (46-116); ALT (SGPT) 39 U/L (10-68); BILIRUBIN - TOTAL 0.19 mg/dL (0.2-1.3); CALC OSMOLALITY 283 mosm/kg (275-300); CALCIUM 8.7 mg/dL (8.5-10.1); CHLORIDE - SERUM 104 mmol/L (98-107); CREATININE - SERUM 0.6 mg/dL (0.6-1.3); GLUCOSE 90 mg/dL (74-106); POTASSIUM - SERUM 3.8 mmol/L (3.5-5.1); PROTEIN - SERUM 7.3 g/dL (6.4-8.2); SODIUM 143 mmol/L (136-145); UREA NITROGEN 10 mg/dL (7-18); eGFR NON AFRICAN AMERICAN > 90 mL/min (90-120)
[2018-10-08 20:50] LABS: HCG URINE NEGATIVE (NEGATIVE)
[2018-10-09 00:06] VITALS: BP 120/81
== END 2018-10-09 00:32 ==
LOC: D.ER 18:58
PROVIDERS: Family Medicine
DX: R45.851 Suicidal ideations (principal); F32.9 Major depressive disorder, single episode, unspecified; F17.200 Nicotine dependence, unspecified, uncomplicated

== ENCOUNTER 2019-01-06 16:36 | Emergency (ER) | payer MEDICAID ==
[~2019-01-06] VITALS: Ht 160 cm; Wt 86.8 kg
[~2019-01-06 16:36] MED LIST changes: +BETAPACE160 MG PO; +TRAZODONE HCL150 MG PO
[2019-01-06 16:40] VITALS: BP 156/103; Ht 160 cm; Wt 86.8 kg
[2019-01-06 17:36] LABS: APPEARANCE HAZY (CLEAR); BILIRUBIN NEGATIVE (NEGATIVE); COLOR YELLOW (YELLOW); GLUCOSE NEGATIVE (NEGATIVE); KETONE NEGATIVE (NEGATIVE); NITRITE NEGATIVE (NEGATIVE); PROTEIN TRACE mg/dL (NEGATIVE); UROBILINOGEN NORMAL (NORMAL)
[2019-01-06 17:37] LABS: BACTERIA MODERATE /hpf (NONE SEEN); EPITHELIAL CELLS 0-5 /hpf (0-5); RED CELLS - URINE >50 /hpf (0-5)
[2019-01-06 17:51] LABS: BASOPHILS 0.2 % (0-2); EOSINOPHILS 3.5 % (0-7); HEMATOCRIT 40.1 % (36.0-48.0); HEMOGLOBIN 13.7 g/dL (12-16); IMMATURE GRANULOCYTES 0.3 % (0-5); LYMPHOCYTES 30.6 % (15-50); MCH 30.2 pg (26.0-34.0); MCHC 34.2 g/dL (31.0-37.0); MCV 88.3 fL (80.0-100.0); MEAN PLATELET VOLUME 11.7 fL (7.4-10.4); MONOCYTES 10.9 % (2-11); NEUTROPHILS 54.5 % (40-80); PLATELET COUNT 235 10x3/uL (130-400); RBC 4.54 10x6/uL (4.00-5.40); RDW 13.6 % (11.5-14.5); WBC 11.6 10x3/uL (4.8-10.8)
[2019-01-06 18:03] LABS: ALBUMIN 3.4 g/dL (3.4-5.0); ALKALINE PHOSPHATASE 75 U/L (46-116); ALT (SGPT) 27 U/L (10-68); BILIRUBIN - TOTAL 0.15 mg/dL (0.2-1.3); CALC OSMOLALITY 277 mosm/kg (275-300); CALCIUM 8.7 mg/dL (8.5-10.1); CARBON DIOXIDE 26.2 mmol/L (21.0-32.0); CHLORIDE - SERUM 105 mmol/L (98-107); CREATININE - SERUM 0.7 mg/dL (0.6-1.3); GLUCOSE 91 mg/dL (74-106); POTASSIUM - SERUM 3.7 mmol/L (3.5-5.1); PROTEIN - SERUM 7.2 g/dL (6.4-8.2); SODIUM 141 mmol/L (136-145); UREA NITROGEN 5 mg/dL (7-18); eGFR NON AFRICAN AMERICAN > 90 mL/min (90-120)
[2019-01-06] MEDS ORDERED: MACROBID100 MG PO (18:51)
== END 2019-01-06 18:53 | disposition home or self-care (01) ==
LOC: D.ER 16:36
PROVIDERS: Family Medicine
DX: R10.2 Pelvic and perineal pain (principal); R30.0 Dysuria

== ENCOUNTER 2019-02-26 19:30 | Emergency (ER) | payer MEDICAID ==
[2019-02-26 19:34] VITALS: BMI 33.9
[2019-02-26] MEDS ORDERED: HYDROCODON-ACE1 EA10 PO (21:26)
[2019-02-26] MEDS ORDERED: ZOFRAN ODT4 MG/UDTAB PO (21:26)
[2019-02-26 21:49] VITALS: BP 116/71
== END 2019-02-26 21:52 | disposition home or self-care (01) ==
LOC: D.ER 19:30
DX: S52.501A Unspecified fracture of the lower end of right radius, initial encounter for closed fracture (principal); W17.89XA Other fall from one level to another, initial encounter; F17.200 Nicotine dependence, unspecified, uncomplicated; S93.402A Sprain of unspecified ligament of left ankle, initial encounter

== ENCOUNTER 2019-03-06 09:40 | Day surgery (SDC) | payer MEDICAID ==
[~2019-03-06] VITALS: Ht 160 cm; Wt 86.6 kg
[~2019-03-06 09:40] MED LIST changes: +HYDROCODON-ACE1 EA10 PO; +ZOFRAN ODT4 MG/UDTAB PO
[2019-03-06 10:06] LABS: HEMATOCRIT 47.6 % (36.0-48.0); HEMOGLOBIN 16.4 g/dL (12-16); MCH 29.3 pg (26.0-34.0); MCHC 34.5 g/dL (31.0-37.0); MEAN PLATELET VOLUME 11.3 fL (7.4-10.4); RBC 5.6 10x6/uL (4.00-5.40); RDW 14.1 % (11.5-14.5); WBC 11.9 10x3/uL (4.8-10.8)
[2019-03-06] MEDS ORDERED: HYDROCODON-ACE1 EA10 PO (10:30)
--- NOTE | 2019-03-06 11:03 | NUR ---
According to the Assessment score the patient scores low and does not require 1:1 observation. Did discuss with her that she should seek counseling and medication for her anxiety.
[2019-03-06 11:23] VITALS: BP 137/97; Ht 160 cm; Wt 86.6 kg
[2019-03-06] MEDS ORDERED: PERCOCET 10-321 EAC1 PO (16:16)
[2019-03-06] MEDS ORDERED: VISTARIL50 MG PO (16:18)
--- NOTE | 2019-03-06 17:09 | NUR ---
CARE TO ANEL DUNBAR @[id number]
--- NOTE | 2019-03-06 17:10 | NUR ---
TAKING OVER PT IN STABLE CONDITION A&OX4
--- NOTE | 2019-03-06 17:20 | NUR ---
PT HAS SLING ON RIGHT ARM
--- NOTE | 2019-03-07 06:18 | OP ---
PATIENT NAME: SUSANA SUAZO MEDICAL RECORD: [id number] :[birth year] LOCATION:[facility] ADMISSION DATE: SURGEON: BHARATH COATS DO DATE OF OPERATION: 03/06/2019 PROCEDURE PERFORMED: Right open carpal tunnel release and right distal radius open reduction internal fixation. PREOPERATIVE DIAGNOSIS: Right distal radius intra-articular fracture and acute carpal tunnel syndrome. POSTOPERATIVE DIAGNOSIS: Right distal radius intra-articular fracture and acute carpal tunnel syndrome. INDICATIONS: Ms. Suazo is a 29-year-old female who broke her distal radius yesterday or the day before; she was seen in my office yesterday and she complained of numbness and tingling into her index and middle finger and to her thumb as well. She had sustained a distal radius fracture that was intra-articular. Having seen that it was a displaced, told her we could fix the distal radius and do a carpal tunnel release just to be safe to prevent any permanent or lasting even though she may already have permanent damage to the median nerve. She is okay with that. She understood the risks and benefits of the procedure including infection, bleeding, damage to nerves and vessels, need for further surgery. She is okay with that and signed the consent. SURGEON: Bharath Coats DO DESCRIPTION OF PROCEDURE: The patient was taken to the operative suite, laid in supine position, given general anesthetic. She was given a block by anesthesia prior to going back to the OR. She was given 2 grams Ancef preoperatively, did not have a reaction, even though she had a penicillin allergy. The right upper extremity was then prepped and draped in sterile fashion. A timeout was performed and everyone was agreeance with the correct side, site, patient and procedure. Once that was completed, the carpal tunnel incision was marked out in line with the fourth ray and a careful dissection was made down to the carpal tunnel itself. The transverse carpal ligament was transected then with a 15 blade scalpel. A nasal speculum was then brought in and then exposed more proximally and distally ensuring that the transcarpal ligament was completely released and it was. Then the distal radius was addressed. An incision was made along the flexor carpi radialis tendon and dissected made down to it. This was taken ulnarly and the dorsal aspect of the tendon sheath was then incised. Dissection was made down to the pronator quadratus. Once the pronator quadratus was peeled off of the radius, the fracture was exposed and reduced. The plate was put on and a pin put in. Once the plate was in appropriate position, the screws were put in distally first and then in the shaft and the radial styloid. After that there is a small piece on the volar ulnar aspect that did not get caught and that was seen on x-ray visually with the loops and so a hook plate was used and inserted and screwed down to the plate. I secured that fragment very well. X-rays were taken in AP and lateral. Everything was in good position and the fracture reduced nicely. There was less than a millimeter gap in the articular surface. At that point the tourniquet had been inflated prior to starting the procedure. It was up to 250 mmHg after exsanguinating the right upper extremity. Prior to starting everything it was up for 54 minutes, let down at that time. Any bleeding was coagulated with the bipolar. The skin was then closed with a 3-0 Vicryl over the right distal radius incision and a 4-0 OPERATIVE REPORT [id number] SUSANA SUAZO Monocryl ran on the skin and 4-0 Monocryl was used to open carpal tunnel site in a horizontal mattress fashion. Prineo glue was placed over both sites. She was then placed with Adaptic, 4 x 4s, cast padding, and a 3 x 12 volar splint was placed and secured with Seymour wrap. She was then awakened and taken to recovery in stable condition. Blood loss was minimal. COMPLICATIONS: None. TRANSINT:[id number] Voice Confirmation ID: [id number] DOCUMENT ID: [id number] BHARATH COATS DO at 0618 CC: [id number] DICTATION DATE: 03/06/19 1625 MOTHER'S HELPER: 03/06/19 2140 [facility] 03/06/[address] [facility] [address] [place] [address]
== END 2019-03-06 18:36 | disposition home or self-care (01) ==
LOC: D.OPS 09:40 → D.PAN 12:00 → D.OPS 18:36
PROVIDERS: Anesthesiology; ATTEND Orthopaedic Surgery
DX: S52.571A Other intraarticular fracture of lower end of right radius, initial encounter for closed fracture (principal); X58.XXXA Exposure to other specified factors, initial encounter; G56.01 Carpal tunnel syndrome, right upper limb; Z01.812 Encounter for preprocedural laboratory examination

== ENCOUNTER → 2019-04-21 10:30 | Outpatient (CLI) | payer MEDICAID ==
[2019-03-06 11:23] VITALS: BMI 33.9
[~2019-04-21 10:30] MED LIST changes: +PERCOCET 10-321 EAC1 PO; +VISTARIL50 MG PO
== END | disposition home or self-care (01) ==
LOC: D.CT 10:30
PROVIDERS: ATTEND Nurse Practitioner Family
DX: S52.501D Unspecified fracture of the lower end of right radius, subsequent encounter for closed fracture with routine healing (principal); X58.XXXD Exposure to other specified factors, subsequent encounter

== ENCOUNTER → 2019-06-11 10:05 | Outpatient (CLI) | payer MEDICAID ==
[2019-03-06 11:23] VITALS: BMI 33.9
[~2019-06-11 10:05] MED LIST changes: +ULTRAM50 MG PO
== END | disposition home or self-care (01) ==
LOC: D.MRI 10:05
PROVIDERS: ATTEND Nurse Practitioner Family
DX: M25.372 Other instability, left ankle (principal)

== ENCOUNTER 2019-06-22 16:36 | Emergency (ER) | payer MEDICAID ==
[~2019-06-22] VITALS: Ht 160 cm; Wt 87.7 kg
[~2019-06-22 16:36] MED LIST changes: -ULTRAM50 MG PO
[2019-06-22 17:05] VITALS: Ht 160 cm; Wt 87.7 kg
[2019-06-22 17:39] LABS: BASOPHILS 0.3 % (0-2); HEMATOCRIT 46.1 % (36.0-48.0); HEMOGLOBIN 15.2 g/dL (12-16); IMMATURE GRANULOCYTES 0.2 % (0-5); LYMPHOCYTES 32.7 % (15-50); MCH 28.7 pg (26.0-34.0); MEAN PLATELET VOLUME 11.5 fL (7.4-10.4); MONOCYTES 9.4 % (2-11); NEUTROPHILS 55.4 % (40-80); PLATELET COUNT 299 10x3/uL (130-400); RDW 13.7 % (11.5-14.5); WBC 9.6 10x3/uL (4.8-10.8)
[2019-06-22 18:29] LABS: APPEARANCE CLEAR (CLEAR); BILIRUBIN NEGATIVE (NEGATIVE); COLOR YELLOW (YELLOW); GLUCOSE NEGATIVE (NEGATIVE); KETONE NEGATIVE (NEGATIVE); NITRITE NEGATIVE (NEGATIVE); PROTEIN NEGATIVE (NEGATIVE); RED CELLS - URINE 0-5 /hpf (0-5); SPECIFIC GRAVITY 1.015 (1.005-1.020); UROBILINOGEN NORMAL (NORMAL); WHITE CELLS - URINE OCC /hpf (NEGATIVE)
[2019-06-22 18:34] LABS: CALC OSMOLALITY 283 mosm/kg (275-300); CALCIUM 9.4 mg/dL (8.5-10.1); CARBON DIOXIDE 31.3 mmol/L (21.0-32.0); CHLORIDE - SERUM 104 mmol/L (98-107); CREATININE - SERUM 0.9 mg/dL (0.6-1.3); GLUCOSE 90 mg/dL (74-106); SODIUM 143 mmol/L (136-145); UREA NITROGEN 10 mg/dL (7-18); eGFR NON AFRICAN AMERICAN 79 mL/min (90-120)
[2019-06-22 18:40] LABS: ALBUMIN 4.1 g/dL (3.4-5.0); ALKALINE PHOSPHATASE 98 U/L (46-116); ALT (SGPT) 48 U/L (10-68); AMYLASE - SERUM 30 U/L (25-115); BILIRUBIN - TOTAL 0.21 mg/dL (0.2-1.3); LIPASE 158 U/L (73-393); PROTEIN - SERUM 8.3 g/dL (6.4-8.2)
[2019-06-22 19:07] LABS: HCG SERUM NEGATIVE (NEGATIVE)
[2019-06-22] MEDS ORDERED: ULTRAM50 MG PO (20:32)
[2019-06-22 20:55] VITALS: BP 138/95
== END 2019-06-22 20:55 | disposition home or self-care (01) ==
LOC: D.ER 16:36
PROVIDERS: Family Medicine
DX: R10.9 Unspecified abdominal pain (principal); K92.2 Gastrointestinal hemorrhage, unspecified; R19.7 Diarrhea, unspecified; R11.2 Nausea with vomiting, unspecified

== ENCOUNTER 2019-07-15 11:04 | Emergency (ER) | payer MEDICAID ==
[~2019-07-15] VITALS: Ht 160 cm; Wt 95.5 kg
[~2019-07-15 11:04] MED LIST changes: +ULTRAM50 MG PO
[2019-07-15 11:08] VITALS: Ht 160 cm; Wt 95.5 kg
[2019-07-15 12:54] VITALS: BP 123/55
== END 2019-07-15 12:55 | disposition home or self-care (01) ==
LOC: D.ER 11:04
DX: S93.402A Sprain of unspecified ligament of left ankle, initial encounter (principal); W10.9XXA Fall (on) (from) unspecified stairs and steps, initial encounter; Y93.9 Activity, unspecified; Y92.9 Unspecified place or not applicable; M25.562 Pain in left knee

== ENCOUNTER 2019-08-24 21:44 | Emergency (ER) | payer MEDICAID ==
[~2019-08-24] VITALS: Ht 160 cm; Wt 97.3 kg
[2019-08-24 22:05] VITALS: Ht 160 cm; Wt 97.3 kg
[2019-08-24] MEDS ORDERED: XANAX1 MG PO (22:08)
[2019-08-24] MEDS ORDERED: EFFEXOR XR150 MG PO (22:08)
[2019-08-24] MEDS ORDERED: ADDERALL XR 2020 MG PO (22:08)
[2019-08-24] MEDS ORDERED: ABILIFY10 MG PO (22:08)
[2019-08-24 22:34] LABS: BASOPHILS 0.2 % (0-2); EOSINOPHILS 1.8 % (0-7); IMMATURE GRANULOCYTES 0.2 % (0-5); LYMPHOCYTES 28.6 % (15-50); MCH 28.1 pg (26.0-34.0); MCHC 32.6 g/dL (31.0-37.0); MCV 86.2 fL (80.0-100.0); MEAN PLATELET VOLUME 11.2 fL (7.4-10.4); MONOCYTES 9.2 % (2-11); PLATELET COUNT 282 10x3/uL (130-400); RBC 4.99 10x6/uL (4.00-5.40); RDW 14.5 % (11.5-14.5); WBC 10.3 10x3/uL (4.8-10.8)
[2019-08-24 22:42] LABS: CALC OSMOLALITY 280 mosm/kg (275-300); CARBON DIOXIDE 28.8 mmol/L (21.0-32.0); CHLORIDE - SERUM 104 mmol/L (98-107); CREATININE - SERUM 0.8 mg/dL (0.6-1.3); GLUCOSE 101 mg/dL (74-106); POTASSIUM - SERUM 3.8 mmol/L (3.5-5.1); SODIUM 142 mmol/L (136-145); UREA NITROGEN 8 mg/dL (7-18); eGFR NON AFRICAN AMERICAN 90 mL/min (90-120)
[2019-08-24 22:50] LABS: ALBUMIN 3.9 g/dL (3.4-5.0); ALKALINE PHOSPHATASE 96 U/L (46-116); ALT (SGPT) 38 U/L (10-68); BILIRUBIN - TOTAL 0.09 mg/dL (0.2-1.3); PROTEIN - SERUM 7.8 g/dL (6.4-8.2)
[2019-08-24 22:58] LABS: APPEARANCE HAZY (CLEAR); COLOR RED (YELLOW); NITRITE NEGATIVE (NEGATIVE)
[2019-08-24 22:59] LABS: BACTERIA FEW /hpf (NEGATIVE); BILIRUBIN NEGATIVE (NEGATIVE); EPITHELIAL CELLS 0-5 /hpf (0-5); GLUCOSE NEGATIVE (NEGATIVE); KETONE NEGATIVE (NEGATIVE); PROTEIN 1+ mg/dL (NEGATIVE); RED CELLS - URINE >50 /hpf (0-5); UROBILINOGEN NORMAL (NORMAL)
--- NOTE | 2019-08-25 02:06 | NUR ---
DR ZHANG NOTIFIED AND REVIEWED PT'S BEHAVIOR AND ASSESSMENT. PT IS A LOW RISK. RESOURCES GIVEN AND REVIEWED WITH PT. SHE VERBALIZES UNDERSTANDING.
[2019-08-25 03:30] VITALS: BP 103/70
== END 2019-08-25 03:30 | disposition left against medical advice (07) ==
LOC: D.ER 21:44
PROVIDERS: Family Medicine
DX: N93.9 Abnormal uterine and vaginal bleeding, unspecified (principal); R10.2 Pelvic and perineal pain; N39.0 Urinary tract infection, site not specified; Z53.29 Procedure and treatment not carried out because of patient's decision for other reasons; M79.7 Fibromyalgia; R00.0 Tachycardia, unspecified

== ENCOUNTER 2019-09-20 23:20 | Inpatient (IN) | payer OTHER, MEDICAID ==
[~2019-09-20] VITALS: Ht 160 cm; Wt 97.7 kg
[~2019-09-20 23:20] MED LIST changes: +ABILIFY10 MG PO; +ADDERALL XR 2020 MG PO
[2019-09-21] VITALS (9 sets, daily range): BP systolic 100–147; BP diastolic 64–105; Ht 160 cm; Wt 97.7 kg
--- NOTE | 2019-09-21 01:00 | NUR ---
PT RESTING ON BED, PT UNCOMFORTABLE AT THIS TIME.
--- NOTE | 2019-09-21 02:00 | NUR ---
PT C/O PAIN AND ANXIETY, EDP AWARE.
[2019-09-21 02:01] LABS: BASOPHILS 0.3 % (0-2); HEMATOCRIT 41.9 % (36.0-48.0); HEMOGLOBIN 13.8 g/dL (12-16); IMMATURE GRANULOCYTES 0.1 % (0-5); LYMPHOCYTES 35.3 % (15-50); MCHC 32.9 g/dL (31.0-37.0); MEAN PLATELET VOLUME 11.1 fL (7.4-10.4); NEUTROPHILS 54.3 % (40-80); PLATELET COUNT 287 10x3/uL (130-400); RBC 4.93 10x6/uL (4.00-5.40); RDW 14.8 % (11.5-14.5); WBC 9.6 10x3/uL (4.8-10.8)
[2019-09-21 02:10] LABS: CALC OSMOLALITY 277 mosm/kg (275-300); CALCIUM 8.6 mg/dL (8.5-10.1); CARBON DIOXIDE 31.9 mmol/L (21.0-32.0); CHLORIDE - SERUM 103 mmol/L (98-107); CREATININE - SERUM 0.8 mg/dL (0.6-1.3); GLUCOSE 103 mg/dL (74-106); POTASSIUM - SERUM 3.7 mmol/L (3.5-5.1); SODIUM 140 mmol/L (136-145); UREA NITROGEN 10 mg/dL (7-18); eGFR NON AFRICAN AMERICAN 90 mL/min (90-120)
[2019-09-21 02:12] LABS: APTT 28.4 SECONDS (22.8-39.4); INR 0.91 (0.85-1.17); PROTIME 12.3 SECONDS (11.6-15.0)
[2019-09-21 02:16] LABS: ALBUMIN 3.6 g/dL (3.4-5.0); ALKALINE PHOSPHATASE 90 U/L (30-120); ALT (SGPT) 47 U/L (10-68); BILIRUBIN - TOTAL 0.22 mg/dL (0.2-1.3); PROTEIN - SERUM 7.7 g/dL (6.4-8.2)
--- NOTE | 2019-09-21 03:03 | NUR ---
US NO LONGER AT BEDSIDE
--- NOTE | 2019-09-21 03:10 | NUR ---
PATIENT CALLED THIS NURSE INTO ROOM. HAS LISTS OF MEDICATIONS AND STATES "WHY AM I NOT GETTING MY MEDS CORRECTLY?" PATIENT UPSET. STATES "THE DOCTOR JUST DOESN'T LIKE ME!" REINFORCED TO PATIENT THAT ALL THE DOCTORS, NURSES, AND PEER EDUCATOR IN THIS FACILITY ARE HERE TO CARE FOR HER AND NO ONE HAS ISSUES OR PROBLEMS TOWARDS HER. PATIENT STATES "WELL I AM SUPPOSED TO HAVE KLONOPIN THREE TIMES A DAY AND BACLOFEN AND I HAVENT HAD IT AT ALL!" REVIEWED MED REC AND SPOKE WITH PATIENT THAT THE DOCTOR PRESCRIBED THE KLONOPIN A SCHEDULED MED AND DID NOT CONTINUE THE BACLOFEN AT THIS TIME BUT DID THE NORCO. PROVIDED REASSURANCE TO PATIENT SEVERAL TIMES. REPEATEDLY STATES "NO ONE LIKES ME." ASKED PATIENT ONCE AGAIN, LIKE EARLIER IN SHIFT, IF ANYONE HAS SAID ANYTHING TO PATIENT THAT COULD UPSET HER AND PATIENT STATED "NO IT'S JUST HOW I FEEL." SYMPATHIZED AND APOLOGIZED THAT PATIENT FELT THIS WAY BUT THAT I HAD NOT WITNESSED ANYONE HAVE ILL FEELINGS OR ATTITUDE PROBLEMS TOWARDS PATIENT. PATIENT THANKED THIS NURSE FOR UNDERSTANDING. DENIES FURTHER PROBLEMS. CL IN REACH. CPOC.
--- NOTE | 2019-09-21 05:49 | NUR ---
I have reviewed this patient and I concur with the Shift Assessment completed by the Licensed Practical Nurse today this shift.
--- NOTE | 2019-09-21 19:28 | NUR ---
IN BED WITH EYES CLOSED, AROUSES EASILY TO VOICE. IV PATENT WITH BODS DEVELOPER INFUSING VIA ORDERS. ABLE TO VOICE NEEDS, STATES SHE IS JUST REALLY TIRED AT THIS TIME. WILL NOTE ANY CHANGE.
[2019-09-22 00:30] VITALS: BP 138/72
[2019-09-22 04:15] VITALS: BP 118/73
[2019-09-22 06:03] LABS: BASOPHILS 0.2 % (0-2); EOSINOPHILS 1.5 % (0-7); HEMATOCRIT 37.4 % (36.0-48.0); HEMOGLOBIN 11.8 g/dL (12-16); IMMATURE GRANULOCYTES 0.1 % (0-5); LYMPHOCYTES 22.3 % (15-50); MCH 27.6 pg (26.0-34.0); MCHC 31.6 g/dL (31.0-37.0); MEAN PLATELET VOLUME 11.7 fL (7.4-10.4); MONOCYTES 5.8 % (2-11); NEUTROPHILS 70.1 % (40-80); PLATELET COUNT 252 10x3/uL (130-400); RBC 4.28 10x6/uL (4.00-5.40); RDW 15.1 % (11.5-14.5); WBC 8.9 10x3/uL (4.8-10.8)
[2019-09-22 06:21] LABS: MCV 87.4 fL (80.0-100.0)
[2019-09-22 06:27] LABS: CARBON DIOXIDE 29.6 mmol/L (21.0-32.0); CHLORIDE - SERUM 107 mmol/L (98-107); CREATININE - SERUM 0.7 mg/dL (0.6-1.3); GLUCOSE 97 mg/dL (74-106); SODIUM 141 mmol/L (136-145); eGFR NON AFRICAN AMERICAN > 90 mL/min (90-120)
[2019-09-22 06:28] LABS: CALC OSMOLALITY 278 mosm/kg (275-300); POTASSIUM - SERUM 4.4 mmol/L (3.5-5.1); UREA NITROGEN 6 mg/dL (7-18)
--- NOTE | 2019-09-22 07:00 | NUR ---
PATIENT RECIEVED RESTING WITH EYES CLOSED, AWAKENS EASILY WITH C/O HEADACHE. CL IN REACH
[2019-09-22 07:53] VITALS: BP 110/64
[2019-09-22 11:31] VITALS: BP 107/59
[2019-09-22 13:34] LABS: UDS - AMPHET POSITIVE QUAL (NEGATIVE); UDS - BARB NEGATIVE QUAL (NEGATIVE); UDS - BENZO POSITIVE QUAL (NEGATIVE); UDS - COCAINE NEGATIVE QUAL (NEGATIVE); UDS - OPIATE POSITIVE QUAL (NEGATIVE); UDS - PCP NEGATIVE QUAL (NEGATIVE); UDS - THC NEGATIVE QUAL (NEGATIVE)
[2019-09-22 13:41] LABS: APPEARANCE CLEAR (CLEAR); BACTERIA FEW /hpf (NEGATIVE); BILIRUBIN NEGATIVE (NEGATIVE); COLOR YELLOW (YELLOW); EPITHELIAL CELLS OCC /hpf (0-5); GLUCOSE NEGATIVE (NEGATIVE); KETONE NEGATIVE (NEGATIVE); NITRITE NEGATIVE (NEGATIVE); PROTEIN NEGATIVE (NEGATIVE); RED CELLS - URINE 25-50 /hpf (0-5); SPECIFIC GRAVITY 1.025 (1.005-1.020); UROBILINOGEN NORMAL (NORMAL); WHITE CELLS - URINE OCC /hpf (NEGATIVE)
--- NOTE | 2019-09-22 15:03 | NUR ---
pt dc home, went over paperwork as well as follow up appointments with pt. all questions answered, no other needs voiced. pt taken down via wc by conrado.
== END 2019-09-22 15:04 | disposition home or self-care (01) | DRG 761 ==
LOC: D.ER 23:20 → D.MS 09-21 01:57
PROVIDERS: Emergency Medicine; ADMIT Internal Medicine Nephrology; ATTEND Internal Medicine Nephrology
DX: N81.6 Rectocele (principal); M79.7 Fibromyalgia; F41.8 Other specified anxiety disorders; F31.9 Bipolar disorder, unspecified; M19.90 Unspecified osteoarthritis, unspecified site; K59.00 Constipation, unspecified

== ENCOUNTER 2019-10-24 22:31 | Observation (INO) | payer OTHER ==
[~2019-10-24] VITALS: Ht 160 cm; Wt 97.7 kg
--- NOTE | 2019-10-24 22:45 | NUR ---
ALISIA MAYER AT BEDSIDE FOR ATTEMPT AT RECTAL PROLAPSE REDUCTION. PT TOLERATED WITH DISCOMFORT AT THIS TIME.
--- NOTE | 2019-10-24 23:00 | NUR ---
PT WANTS TO TAKE HER OWN XANAX FROM HER PURSE. OK WITH PT TAKING HER OWN MEDS.
[2019-10-24 23:01] LABS: BASOPHILS 0.2 % (0-2); EOSINOPHILS 1.5 % (0-7); HEMATOCRIT 40.9 % (36.0-48.0); HEMOGLOBIN 13.6 g/dL (12-16); IMMATURE GRANULOCYTES 0.2 % (0-5); LYMPHOCYTES 31.3 % (15-50); MCH 27.5 pg (26.0-34.0); MCHC 33.3 g/dL (31.0-37.0); MCV 82.6 fL (80.0-100.0); MEAN PLATELET VOLUME 10.7 fL (7.4-10.4); MONOCYTES 8.8 % (2-11); RBC 4.95 10x6/uL (4.00-5.40); RDW 14.8 % (11.5-14.5); WBC 12.1 10x3/uL (4.8-10.8)
[2019-10-24 23:03] LABS: PLATELET COUNT 321 10x3/uL (130-400)
[2019-10-24 23:09] LABS: CALC OSMOLALITY 282 mosm/kg (275-300); CALCIUM 9.2 mg/dL (8.5-10.1); CHLORIDE - SERUM 106 mmol/L (98-107); CREATININE - SERUM 0.7 mg/dL (0.6-1.3); GLUCOSE 94 mg/dL (74-106); POTASSIUM - SERUM 3.8 mmol/L (3.5-5.1); SODIUM 143 mmol/L (136-145); UREA NITROGEN 6 mg/dL (7-18); eGFR NON AFRICAN AMERICAN > 90 mL/min (90-120)
[2019-10-24 23:25] LABS: ALBUMIN 3.8 g/dL (3.4-5.0); ALKALINE PHOSPHATASE 95 U/L (30-120); ALT (SGPT) 46 U/L (10-68); PROTEIN - SERUM 7.8 g/dL (6.4-8.2)
[2019-10-24 23:28] LABS: UDS - AMPHET POSITIVE QUAL (NEGATIVE); UDS - BARB NEGATIVE QUAL (NEGATIVE); UDS - BENZO POSITIVE QUAL (NEGATIVE); UDS - COCAINE NEGATIVE QUAL (NEGATIVE); UDS - OPIATE NEGATIVE QUAL (NEGATIVE); UDS - PCP NEGATIVE QUAL (NEGATIVE); UDS - THC NEGATIVE QUAL (NEGATIVE)
[2019-10-24 23:31] LABS: BILIRUBIN NEGATIVE (NEGATIVE); GLUCOSE NEGATIVE (NEGATIVE); KETONE NEGATIVE (NEGATIVE); NITRITE NEGATIVE (NEGATIVE); SPECIFIC GRAVITY 1.015 (1.005-1.020); UROBILINOGEN NORMAL (NORMAL)
--- NOTE | 2019-10-25 00:26 | NUR ---
*LATE ENTRY*- PT'S IV OF NS BOLUS CON'T ON ADMISSION AT 999ML/HOUR.
[2019-10-25] MEDS ORDERED: MYRBETRIQ50 MG PO (00:38)
--- NOTE | 2019-10-25 00:52 | NUR ---
RECEIVED TO ROOM FROM ER VIA [employer]. ALERT.ORIENTED. IV TO LFA INTACT WITHOUT REDNESS OR EDEMA NOTED. PEREZ PATENT AND DRAINING CLEAR YELLOW URINE. .COMPLAINTS OF RECTAL PAIN. DEMEROL 25 MG GIVEN PER ORDERS. ORIENTED TO ROOM. CL IN REACH
[2019-10-25] MEDS ORDERED: ADDERALL 20 MG20 M1 PO (01:09)
[2019-10-25 01:10] VITALS: BP 133/80; BMI 38.1
[2019-10-25 04:00] VITALS: BP 108/61
[2019-10-25 06:18] LABS: BASOPHILS 0.6 % (0-2); EOSINOPHILS 2.1 % (0-7); HEMATOCRIT 37.2 % (36.0-48.0); IMMATURE GRANULOCYTES 0.2 % (0-5); LYMPHOCYTES 36.4 % (15-50); MCH 27.3 pg (26.0-34.0); MCHC 32.3 g/dL (31.0-37.0); MEAN PLATELET VOLUME 10.9 fL (7.4-10.4); MONOCYTES 10.5 % (2-11); NEUTROPHILS 50.2 % (40-80); PLATELET COUNT 274 10x3/uL (130-400); RBC 4.39 10x6/uL (4.00-5.40); RDW 15.3 % (11.5-14.5)
[2019-10-25 06:25] LABS: MCV 84.7 fL (80.0-100.0)
[2019-10-25 06:39] LABS: CALC OSMOLALITY 283 mosm/kg (275-300); CALCIUM 8.3 mg/dL (8.5-10.1); CARBON DIOXIDE 28.9 mmol/L (21.0-32.0); CHLORIDE - SERUM 108 mmol/L (98-107); CREATININE - SERUM 0.7 mg/dL (0.6-1.3); GLUCOSE 85 mg/dL (74-106); MAGNESIUM - SERUM 2.2 mg/dL (1.8-2.4); POTASSIUM - SERUM 3.8 mmol/L (3.5-5.1); SODIUM 144 mmol/L (136-145); UREA NITROGEN 7 mg/dL (7-18); eGFR NON AFRICAN AMERICAN > 90 mL/min (90-120)
[2019-10-25 07:52] VITALS: BP 101/64
--- NOTE | 2019-10-25 10:59 | NUR ---
RESTING IN BED, C/O PAIN, PEREZ TO GRAVITY, IV INFUSING, MEDICATED X1 BY REEL SLITTER THIS SHIFT FOR PAIN, CONT TO MONITOR PAIN
[2019-10-25 11:54] VITALS: BP 115/71
[2019-10-25 13:53] VITALS: Ht 160 cm; Wt 97.7 kg
[2019-10-25 16:07] VITALS: BP 115/63
--- NOTE | 2019-10-25 16:15 | NUR ---
DC IV, TIP INTACT, REVIEWED DC ORDERS WITH PT, VOICED NO CONCERNS, TAKEN TO PRIVATE VEHICLE PER WC
== END 2019-10-25 16:20 | disposition home or self-care (01) ==
LOC: D.ER 22:31 → OBSVTIME 23:39 → D.MS 23:39
PROVIDERS: Family Medicine; ADMIT Internal Medicine Nephrology; ATTEND Internal Medicine Nephrology
DX: K62.3 Rectal prolapse (principal); F41.8 Other specified anxiety disorders; M79.7 Fibromyalgia; K64.9 Unspecified hemorrhoids; N30.10 Interstitial cystitis (chronic) without hematuria; N94.10 Unspecified dyspareunia; G89.29 Other chronic pain; R35.0 Frequency of micturition; R39.15 Urgency of urination

== ENCOUNTER 2019-11-03 07:45 | Day surgery (SDC) | payer SELFPAY ==
[2019-11-02 09:13] LABS: HEMATOCRIT 42.6 % (36.0-48.0); HEMOGLOBIN 14.1 g/dL (12-16); MCH 27.8 pg (26.0-34.0); MCHC 33.1 g/dL (31.0-37.0); MCV 83.9 fL (80.0-100.0); RBC 5.08 10x6/uL (4.00-5.40); RDW 14.9 % (11.5-14.5); WBC 9.2 10x3/uL (4.8-10.8)
[~2019-11-03] VITALS: Ht 160 cm; Wt 95.7 kg
[~2019-11-03 07:45] MED LIST changes: +MYRBETRIQ50 MG PO
[2019-11-03 08:13] VITALS: BP 121/72; Ht 160 cm; Wt 95.7 kg
--- NOTE | 2019-11-03 09:07 | NUR ---
DR. ZHANG NOTIFIED AND REVIEWED PT'S BEHAVIOR AND ASSESSMENT RESULTS. PT IS A LOW RISK PER DR. ZHANG. DR. ZHANG STATED TO GIVE RESOURCES TO PT AT TIME OF DISCHARGE. NO FURTHER ORDERS AT THIS TIME. RESOURCES REVIEWED WITH PT. AND SHE VERBALIZED UNDERSTANDING.
--- NOTE | 2019-11-03 09:22 | NUR ---
0915 ROOM CHECK, PT C/O PAIN RATED 8/10 IN PELVIC REGION, NORCO 10MG PO GIVEN FOR PAIN .
--- NOTE | 2019-11-03 12:58 | NUR ---
1240 PT UP TO BATHROOM WITH ASSISTANCE. PT IS CRYING AND STATES SHE IS HURTING A FEELS LIKE SHE NEEDS TO URINIATE. 1252 PT'S PAIN LEVEL IS 10 OUT OF 10. NORCO GIVEN TO PT
--- NOTE | 2019-11-03 21:04 | OP ---
PATIENT NAME: SUSANA PINEDA MEDICAL RECORD: [id number] :89 LOCATION:[facility] ADMISSION DATE: SURGEON: GRETCHEN CHAU MD DATE OF OPERATION: 11/03/2019 SURGEON: Gretchen Chau MD ANESTHESIA: General anesthesia by Lorena Caicedo CRNA. DIAGNOSES: 1. Interstitial cystitis with chronic bladder pain. 2. Burnside-Walker grade III rectocele. PROCEDURE: 1. Cystoscopy, hydrodilation of the bladder, intravesical Rimso instillation. 2. Rectocele repair by levator ani muscle plication with 6 horizontal mattress sutures. FINDINGS: On cystoscopy, single ureteral orifices bilaterally with no bladder tumors. Diffusely inflamed bladder. Burnside-Walker grade III rectocele with hemorrhoids. SPECIMENS: Posterior vaginal wall. ESTIMATED BLOOD LOSS: Minimal. CLINICAL HISTORY: This is a 29-year-old female, A1, who has complained of a vaginal bulging for over 1 year, as well as pelvic pain. She had a hysterectomy at age 25 for severe vaginal bleeding from endometriosis. The data scientist was Dr. Joseph. I saw her in hospital for a rectocele grade III and she was complaining of severe pelvic pain for which she was requesting IV Dilaudid. She had an abdominal and pelvic CT on 08/25/2019, which showed normal kidneys without stones or hydronephrosis or masses. Previous hysterectomy, cholecystectomy and appendectomy, was also noted. The bladder appeared to be normal. She has quite significant voiding symptoms including urinary frequency every 5 minutes and nocturia times 5-6. In association of the chronic pelvic pain, this is most likely from interstitial cystitis. As a result of her chronic bladder pain and dyspareunia, she has resorted to the anal sex. The anal sex has given way to large hemorrhoids as well as a grade III rectocele, which is symptomatic in terms of defecation. She comes now to have the interstitial cystitis treated with intravesical Rimso and hydrodistention. Also, the rectocele will be repaired at the same time. SHE IS ALLERGIC TO CLINDAMYCIN, PENICILLIN, MORPHINE, DOXYCYCLINE, BACTRIM, VANCOMYCIN. She was given Levaquin IV network systems consultant to the OR. DESCRIPTION OF PROCEDURE: The patient was given induction of general anesthesia. She was placed into lithotomy position and prepped and draped. A 17-Mongolian cystoscope was used for visualization. The findings are as outlined above. The bladder was hydrodistended to at least 600 mL for over 2 minutes. Then, the bladder was emptied. The scope was removed. A red rubber catheter was used for instillation of 50 mL of Rimso solution into the bladder. Once the solution was in the bladder, the catheter was removed, leaving the solution in the bladder. The solution stayed in the bladder for the rest of the case. I then placed #1 nylon sutures as stay sutures to retract the labia majora. These stay sutures were anchored to the medial thighs. The posterior vaginal wall was OPERATIVE REPORT [id number] SUSANA PINEDA then infiltrated with vasopressin solution. Twenty units of vasopressin was dissolved in 100 mL of injectable normal saline. This was used for hydrodissection of the posterior vaginal wall away from the rectum. A morris shaped area was excised in the posterior vaginal wall. The mucosa was removed and sent to pathology for identification. I continued to dissect the plane between the anterior rectal wall and the posterior vaginal wall until I extended it cranially and laterally on each side. The levator ani muscles were cleared from the rectum. Horizontal mattress sutures were then placed using 2-0 Prolene with the Capio suture truck driver rubbish collector. The Capio was placed through the levator ani muscle one side and then reloaded and placed through the levator ani muscle of the opposite side. Once the suture was tied down, a horizontal mattress suture was created, which brought the 2 muscles together to meet in the midline and pushed the rectum down. Six such horizontal mattress sutures were used to completely reduce the rectocele. At the end of procedure, the vaginal incision was closed using running 4-0 Monocryl. Vaginal packing consisting of 2-inch Kerlix infiltrated with estrogen cream was placed into the vagina. This will be removed prior to the patient going home. A #1 nylon stay sutures were removed. The patient was awakened and brought to the recovery room. I will see her in followup in 2 weeks' time to see how she is feeling. TRANSINT:[id number] Voice Confirmation ID: [id number] DOCUMENT ID: [id number] GRETCHEN CHAU MD at 2104 CC: [id number] DICTATION DATE: 11/03/19 1213 MANAGER SUBWAY: 11/03/19 2288 [facility] 11/03/19 [facility] [address] [place] [address]
== END 2019-11-03 15:10 | disposition home or self-care (01) ==
LOC: D.PAN 07:45 → D.OPS 09:15 → D.PAN 10:00
PROVIDERS: Anesthesiology; ATTEND Urology
DX: N30.10 Interstitial cystitis (chronic) without hematuria (principal); R39.82 Chronic bladder pain; N81.6 Rectocele; R10.9 Unspecified abdominal pain; N39.41 Urge incontinence

== ENCOUNTER → 2019-11-20 15:06 | Outpatient (CLI) | payer SELFPAY ==
[2019-11-03 08:13] VITALS: BMI 37.4
== END | disposition home or self-care (01) ==
LOC: D.LABREF 15:06
PROVIDERS: ATTEND Urology
DX: N39.0 Urinary tract infection, site not specified (principal)

== ENCOUNTER → 2019-12-02 18:04 | Outpatient (CLI) | payer SELFPAY ==
[2019-11-03 08:13] VITALS: BMI 37.4
== END | disposition home or self-care (01) ==
LOC: D.LABREF 18:04
PROVIDERS: ATTEND Urology
DX: N39.0 Urinary tract infection, site not specified (principal)

== ENCOUNTER 2020-01-26 18:12 | Emergency (ER) | payer MEDICAID ==
[~2020-01-26] VITALS: Ht 160 cm; Wt 96.4 kg
[2020-01-26 18:24] VITALS: Ht 160 cm; Wt 96.4 kg
[2020-01-26 19:10] LABS: BASOPHILS 0.3 % (0-2); EOSINOPHILS 2.3 % (0-7); HEMATOCRIT 38.2 % (36.0-48.0); HEMOGLOBIN 12.1 g/dL (12-16); IMMATURE GRANULOCYTES 0.2 % (0-5); LYMPHOCYTES 30.2 % (15-50); MCH 26.2 pg (26.0-34.0); MCHC 31.7 g/dL (31.0-37.0); MCV 82.7 fL (80.0-100.0); MEAN PLATELET VOLUME 10.9 fL (7.4-10.4); MONOCYTES 8.3 % (2-11); NEUTROPHILS 58.7 % (40-80); PLATELET COUNT 296 10x3/uL (130-400); RBC 4.62 10x6/uL (4.00-5.40); WBC 9.6 10x3/uL (4.8-10.8)
[2020-01-26 19:12] LABS: CALC OSMOLALITY 279 mosm/kg (275-300); CALCIUM 8.6 mg/dL (8.5-10.1); CARBON DIOXIDE 29.6 mmol/L (21.0-32.0); CHLORIDE - SERUM 104 mmol/L (98-107); GLUCOSE 120 mg/dL (74-106); POTASSIUM - SERUM 3.4 mmol/L (3.5-5.1); SODIUM 141 mmol/L (136-145); UREA NITROGEN 8 mg/dL (7-18); eGFR NON AFRICAN AMERICAN 69 mL/min (90-120)
[2020-01-26 19:13] LABS: BILIRUBIN NEGATIVE (NEGATIVE); GLUCOSE NEGATIVE (NEGATIVE); KETONE NEGATIVE (NEGATIVE); NITRITE NEGATIVE (NEGATIVE); SPECIFIC GRAVITY 1.025 (1.005-1.020); UROBILINOGEN NORMAL (NORMAL)
[2020-01-26 19:15] LABS: HCG URINE NEGATIVE (NEGATIVE)
[2020-01-26 19:21] LABS: ALBUMIN 3.4 g/dL (3.4-5.0); ALKALINE PHOSPHATASE 91 U/L (30-120); ALT (SGPT) 44 U/L (10-68); AMYLASE - SERUM 20 U/L (25-115); BILIRUBIN - TOTAL 0.13 mg/dL (0.2-1.3); LIPASE 78 U/L (73-393); PROTEIN - SERUM 7.1 g/dL (6.4-8.2); TROPONIN-I < 0.017 ng/mL (0.000-0.060)
[2020-01-26] MEDS ORDERED: METHOCARBAMOL500 MG PO (22:08)
[2020-01-26] MEDS ORDERED: PHENAZOPYRIDIN200 MG PO (22:08)
[2020-01-26 22:35] VITALS: BP 138/82
== END 2020-01-26 22:36 | disposition home or self-care (01) ==
LOC: D.ER 18:12
PROVIDERS: Family Medicine
DX: R10.9 Unspecified abdominal pain (principal); R10.2 Pelvic and perineal pain; Z76.5 Malingerer [conscious simulation]; J45.909 Unspecified asthma, uncomplicated; K21.9 Gastro-esophageal reflux disease without esophagitis

== ENCOUNTER 2020-02-18 | Emergency (ER) | payer MEDICAID ==
[~2020-02-18] VITALS: Ht 160 cm; Wt 98.2 kg
[~2020-02-18] MED LIST changes: +METHOCARBAMOL500 MG PO; +PHENAZOPYRIDIN200 MG PO
[2020-02-18 00:04] VITALS: Ht 160 cm; Wt 98.2 kg
[2020-02-18] MEDS ORDERED: RISPERDAL1 MG PO (00:15)
[2020-02-18 00:54] LABS: BASOPHILS 0.3 % (0-2); CALC OSMOLALITY 274 mosm/kg (275-300); CALCIUM 8.9 mg/dL (8.5-10.1); CARBON DIOXIDE 27.3 mmol/L (21.0-32.0); CHLORIDE - SERUM 103 mmol/L (98-107); CREATININE - SERUM 0.8 mg/dL (0.6-1.3); EOSINOPHILS 2.8 % (0-7); GLUCOSE 102 mg/dL (74-106); HEMATOCRIT 38.8 % (36.0-48.0); HEMOGLOBIN 12.4 g/dL (12-16); IMMATURE GRANULOCYTES 0.3 % (0-5); LYMPHOCYTES 28.5 % (15-50); MCH 25.5 pg (26.0-34.0); MCV 79.7 fL (80.0-100.0); MEAN PLATELET VOLUME 10.7 fL (7.4-10.4); MONOCYTES 11.4 % (2-11); NEUTROPHILS 56.7 % (40-80); POTASSIUM - SERUM 3.9 mmol/L (3.5-5.1); RBC 4.87 10x6/uL (4.00-5.40); RDW 15.5 % (11.5-14.5); SODIUM 138 mmol/L (136-145); UREA NITROGEN 9 mg/dL (7-18); WBC 10.5 10x3/uL (4.8-10.8); eGFR NON AFRICAN AMERICAN 90 mL/min (90-120)
[2020-02-18 00:59] LABS: BILIRUBIN NEGATIVE (NEGATIVE); GLUCOSE NEGATIVE (NEGATIVE); KETONE NEGATIVE (NEGATIVE); NITRITE NEGATIVE (NEGATIVE); SPECIFIC GRAVITY 1.025 (1.005-1.020); UROBILINOGEN NORMAL (NORMAL)
[2020-02-18 01:00] LABS: BACTERIA FEW /hpf (NEGATIVE); EPITHELIAL CELLS 0-5 /hpf (0-5); RED CELLS - URINE 0-5 /hpf (0-5)
[2020-02-18 01:01] LABS: PLATELET COUNT 388 10x3/uL (130-400)
[2020-02-18 01:03] LABS: ALBUMIN 3.8 g/dL (3.4-5.0); ALKALINE PHOSPHATASE 100 U/L (30-120); ALT (SGPT) 43 U/L (10-68); AMYLASE - SERUM 17 U/L (25-115); BILIRUBIN - TOTAL 0.32 mg/dL (0.2-1.3); LIPASE 60 U/L (73-393); PROTEIN - SERUM 7.8 g/dL (6.4-8.2); TROPONIN-I < 0.017 ng/mL (0.000-0.060)
[2020-02-18] MEDS ORDERED: ULTRAM50 MG PO (03:31)
[2020-02-18] MEDS ORDERED: PHENERGAN25 M1 PO (03:31)
[2020-02-18 03:52] VITALS: BP 117/88
== END 2020-02-18 03:52 | disposition home or self-care (01) ==
LOC: D.ER
PROVIDERS: Family Medicine
DX: R10.9 Unspecified abdominal pain (principal); Y09 Assault by unspecified means; J45.909 Unspecified asthma, uncomplicated; K21.9 Gastro-esophageal reflux disease without esophagitis; N93.9 Abnormal uterine and vaginal bleeding, unspecified

== ENCOUNTER 2020-04-20 04:51 | Emergency (ER) | payer MEDICAID ==
[~2020-04-20] VITALS: Ht 160 cm; Wt 90.9 kg
[~2020-04-20 04:51] MED LIST changes: +PHENERGAN25 M1 PO; +RISPERDAL1 MG PO
[2020-04-20 04:52] VITALS: Ht 160 cm; Wt 90.9 kg
[2020-04-20 05:33] LABS: BASOPHILS 0.2 % (0-2); EOSINOPHILS 0.5 % (0-7); HEMATOCRIT 41.1 % (36.0-48.0); HEMOGLOBIN 12.9 g/dL (12-16); IMMATURE GRANULOCYTES 1.1 % (0-5); LYMPHOCYTES 33.4 % (15-50); MCH 24.8 pg (26.0-34.0); MCHC 31.4 g/dL (31.0-37.0); MCV 78.9 fL (80.0-100.0); MEAN PLATELET VOLUME 10.4 fL (7.4-10.4); MONOCYTES 9.1 % (2-11); NEUTROPHILS 55.7 % (40-80); PLATELET COUNT 344 10x3/uL (130-400); RBC 5.21 10x6/uL (4.00-5.40)
[2020-04-20 06:01] LABS: ANION GAP 16.2 mmol/L (8-16); CALCIUM 8.5 mg/dL (8.5-10.1); CARBON DIOXIDE 22.4 mmol/L (21.0-32.0); CREATININE - SERUM 1.1 mg/dL (0.6-1.3); POTASSIUM - SERUM 3.6 mmol/L (3.5-5.1)
[2020-04-20 06:15] LABS: ALBUMIN 3.6 g/dL (3.4-5.0); BILIRUBIN - TOTAL 0.32 mg/dL (0.2-1.3); C-REACTIVE PROTEIN 0.5 mg/dL (0.0-0.9); MAGNESIUM - SERUM 2.8 mg/dL (1.8-2.4); PROTEIN - SERUM 7.3 g/dL (6.4-8.2); THYROID STIMULATING HORMONE 5.89 uIU/mL (0.36-3.74)
[2020-04-20 06:17] LABS: BILIRUBIN NEGATIVE (NEGATIVE); KETONE NEGATIVE (NEGATIVE); NITRITE NEGATIVE (NEGATIVE); UROBILINOGEN NORMAL (NORMAL)
[2020-04-20 06:21] LABS: UDS - AMPHET POSITIVE QUAL (NEGATIVE); UDS - BARB NEGATIVE QUAL (NEGATIVE); UDS - BENZO POSITIVE QUAL (NEGATIVE); UDS - COCAINE NEGATIVE QUAL (NEGATIVE); UDS - OPIATE NEGATIVE QUAL (NEGATIVE); UDS - PCP NEGATIVE QUAL (NEGATIVE); UDS - THC NEGATIVE QUAL (NEGATIVE)
[2020-04-20] MEDS ORDERED: HYDROCODON-ACE1 EAC7 PO (07:53)
[2020-04-20 09:05] LABS: CREATINE KINASE 62 UL (21-215); TROPONIN-I < 0.017 ng/mL (0.000-0.060)
[2020-04-20 09:44] VITALS: BP 103/62
== END 2020-04-20 09:45 | disposition home or self-care (01) ==
LOC: D.ER 04:51
PROVIDERS: Emergency Medicine; Family Medicine
DX: R56.9 Unspecified convulsions (principal); R07.89 Other chest pain; J98.11 Atelectasis; Z72.0 Tobacco use

== ENCOUNTER 2020-05-02 20:15 | Emergency (ER) | payer MEDICAID ==
[~2020-05-02] VITALS: Ht 160 cm; Wt 98.2 kg
[~2020-05-02 20:15] MED LIST changes: +HYDROCODON-ACE1 EAC7 PO
[2020-05-02 20:31] VITALS: Ht 160 cm; Wt 98.2 kg
[2020-05-02] MEDS ORDERED: HYDROXYCHLOROQ200 MG PO (20:34)
[2020-05-02] MEDS ORDERED: OXYBUTYNIN CHLOR5 MG PO (20:34)
[2020-05-02] MEDS ORDERED: WELLBUTRIN SR150 MG (20:34)
[2020-05-02] MEDS ORDERED: HYDROCODON-ACE1 EA10 PO (21:44)
[2020-05-02 22:14] VITALS: BP 118/78
== END 2020-05-02 22:14 | disposition home or self-care (01) ==
LOC: D.ER 20:15
DX: S80.01XA Contusion of right knee, initial encounter (principal); S76.911A Strain of unspecified muscles, fascia and tendons at thigh level, right thigh, initial encounter; M25.561 Pain in right knee; M54.6 Pain in thoracic spine; W19.XXXA Unspecified fall, initial encounter; Y93.9 Activity, unspecified; Y92.9 Unspecified place or not applicable

== ENCOUNTER → 2020-05-13 09:22 | Outpatient (CLI) | payer MEDICAID ==
[2020-05-02 20:31] VITALS: BMI 38.3
[~2020-05-13 09:22] MED LIST changes: +HYDROXYCHLOROQ200 MG PO; +OXYBUTYNIN CHLOR5 MG PO; +WELLBUTRIN SR150 MG
== END | disposition home or self-care (01) ==
LOC: D.MRI 09:22
PROVIDERS: ATTEND Orthopaedic Surgery
DX: M25.561 Pain in right knee (principal)

== ENCOUNTER 2020-05-30 17:47 | Emergency (ER) | payer MEDICAID ==
[~2020-05-30] VITALS: Ht 160 cm; Wt 100.0 kg
[2020-05-30 18:14] VITALS: Ht 160 cm; Wt 100.0 kg
[2020-05-30 19:09] LABS: BASOPHILS 0.1 % (0-2); EOSINOPHILS 1.8 % (0-7); HEMATOCRIT 37.1 % (36.0-48.0); HEMOGLOBIN 12.1 g/dL (12-16); IMMATURE GRANULOCYTES 0.1 % (0-5); LYMPHOCYTES 24.4 % (15-50); MCH 25.7 pg (26.0-34.0); MCHC 32.6 g/dL (31.0-37.0); MCV 78.9 fL (80.0-100.0); MEAN PLATELET VOLUME 10.5 fL (7.4-10.4); MONOCYTES 9.8 % (2-11); NEUTROPHILS 63.8 % (40-80); RDW 17.2 % (11.5-14.5)
[2020-05-30 19:10] LABS: PLATELET COUNT 254 10x3/uL (130-400)
[2020-05-30 19:17] LABS: APTT 26.7 SECONDS (22.8-39.4); INR 0.89 (0.85-1.17)
[2020-05-30 19:32] LABS: CALC OSMOLALITY 276 mosm/kg (275-300); CALCIUM 9.1 mg/dL (8.5-10.1); CARBON DIOXIDE 29.1 mmol/L (21.0-32.0); CHLORIDE - SERUM 105 mmol/L (98-107); CREATININE - SERUM 0.7 mg/dL (0.6-1.3); GLUCOSE 100 mg/dL (74-106); POTASSIUM - SERUM 3.6 mmol/L (3.5-5.1); SODIUM 140 mmol/L (136-145); UREA NITROGEN 6 mg/dL (7-18); eGFR NON AFRICAN AMERICAN > 90 mL/min (90-120)
[2020-05-30 19:53] LABS: ALBUMIN 3.4 g/dL (3.4-5.0); ALKALINE PHOSPHATASE 73 U/L (30-120); ALT (SGPT) 51 U/L (10-68); BILIRUBIN - TOTAL 0.13 mg/dL (0.2-1.3); CKMB 0.4 U/L (0.0-3.6); CREATINE KINASE 76 UL (21-215); PRO BNP 25 pg/mL (0-125); PROTEIN - SERUM 7.1 g/dL (6.4-8.2)
[2020-05-30] MEDS ORDERED: ZITHROMAX500 MG PO (19:56)
[2020-05-30] MEDS ORDERED: TESSALON PERLE100 MG PO (19:56)
[2020-05-30] MEDS ORDERED: ALBUTEROL SULF8.5 GM INH (19:56)
[2020-05-30] MEDS ORDERED: OMNICEF300 MG PO (19:56)
[2020-05-30 19:57] LABS: TROPONIN-I < 0.017 ng/mL (0.000-0.060)
[2020-05-30 22:01] VITALS: BP 142/89
== END 2020-05-30 22:03 | disposition home or self-care (01) ==
LOC: D.ER 17:47
PROVIDERS: Emergency Medicine
DX: J18.9 Pneumonia, unspecified organism (principal); R05 Cough; R50.9 Fever, unspecified

== ENCOUNTER 2020-11-22 09:54 | Emergency (ER) | payer BC ==
[~2020-11-22] VITALS: Ht 160 cm; Wt 104.5 kg
[~2020-11-22 09:54] MED LIST changes: +ALBUTEROL SULF8.5 GM INH; +BACLOFEN20 M1 PO; +CALCIUM 600 +1 EAC3 PO; +ESTRACE2 MG PO; +TESSALON PERLE100 MG PO; +TRAZODONE HCL50 MG PO; +VRAYLAR3 MG; +ZITHROMAX500 MG PO
[2020-11-22 09:59] VITALS: Ht 160 cm; Wt 104.5 kg
[2020-11-22 11:06] LABS: BASOPHILS 0.2 % (0-2); EOSINOPHILS 0.7 % (0-7); HEMATOCRIT 42.8 % (36.0-48.0); HEMOGLOBIN 14.1 g/dL (12-16); IMMATURE GRANULOCYTES 0.4 % (0-5); LYMPHOCYTE ABS# 1.69 10x3/uL (1.18-3.74); LYMPHOCYTES 13.8 % (15-50); MCH 26.9 pg (26.0-34.0); MCHC 32.9 g/dL (31.0-37.0); MCV 81.5 fL (80.0-100.0); MEAN PLATELET VOLUME 10.6 fL (7.4-10.4); MONOCYTES 10.2 % (2-11); NEUTROPHIL ABS# 9.14 10x3/uL (1.56-6.13); NEUTROPHILS 74.7 % (40-80); PLATELET COUNT 280 10x3/uL (130-400); RBC 5.25 10x6/uL (4.00-5.40); RDW 15.4 % (11.5-14.5); WBC 12.3 10x3/uL (4.8-10.8)
[2020-11-22 11:16] LABS: CALC OSMOLALITY 271 mosm/kg (275-300); CALCIUM 9.1 mg/dL (8.5-10.1); CARBON DIOXIDE 24.2 mmol/L (21.0-32.0); CHLORIDE - SERUM 103 mmol/L (98-107); CREATININE - SERUM 0.8 mg/dL (0.6-1.3); GLUCOSE 110 mg/dL (74-106); POTASSIUM - SERUM 3.9 mmol/L (3.5-5.1); SODIUM 136 mmol/L (136-145); UREA NITROGEN 9 mg/dL (7-18); eGFR NON AFRICAN AMERICAN 90 mL/min (90-120)
[2020-11-22 11:19] LABS: APTT 25.7 SECONDS (22.8-39.4); INR 1.05 (0.85-1.17); PROTIME 12.7 SECONDS (11.6-15.0)
[2020-11-22 11:31] LABS: ALBUMIN 3.8 g/dL (3.4-5.0); ALKALINE PHOSPHATASE 58 U/L (30-120); ALT (SGPT) 33 U/L (10-68); BILIRUBIN - TOTAL 0.32 mg/dL (0.2-1.3); CKMB 0.8 U/L (0.0-3.6); CREATINE KINASE 109 UL (21-215); MAGNESIUM - SERUM 2.4 mg/dL (1.8-2.4); PROTEIN - SERUM 7.6 g/dL (6.4-8.2); THYROID STIMULATING HORMONE 1.95 uIU/mL (0.36-3.74)
[2020-11-22 11:34] LABS: TROPONIN-I < 0.017 ng/mL (0.000-0.060)
[2020-11-22 13:25] LABS: UDS - AMPHET POSITIVE QUAL (NEGATIVE); UDS - BARB NEGATIVE QUAL (NEGATIVE); UDS - BENZO NEGATIVE QUAL (NEGATIVE); UDS - COCAINE NEGATIVE QUAL (NEGATIVE); UDS - OPIATE NEGATIVE QUAL (NEGATIVE); UDS - PCP NEGATIVE QUAL (NEGATIVE); UDS - THC NEGATIVE QUAL (NEGATIVE)
[2020-11-22 13:39] LABS: BILIRUBIN NEGATIVE (NEGATIVE); KETONE NEGATIVE (NEGATIVE); NITRITE NEGATIVE (NEGATIVE); UROBILINOGEN NORMAL mg/dL (< 2)
[2020-11-22 14:08] VITALS: BP 116/68
== END 2020-11-22 14:08 | disposition home or self-care (01) ==
LOC: D.ER 09:54
PROVIDERS: Emergency Medicine
DX: R56.9 Unspecified convulsions (principal); R51.9 Headache, unspecified

== ENCOUNTER 2020-12-23 10:56 | Emergency (ER) | payer BC ==
[~2020-12-23] VITALS: Ht 160 cm; Wt 104.5 kg
[2020-12-23 11:00] VITALS: BP 144/97; Ht 160 cm; Wt 104.5 kg
[2020-12-23] MEDS ORDERED: TORADOL10 MG PO (11:35)
== END 2020-12-23 12:00 | disposition home or self-care (01) ==
LOC: D.ER 10:56
DX: T65.891A Toxic effect of other specified substances, accidental (unintentional), initial encounter (principal); T26.92XA Corrosion of left eye and adnexa, part unspecified, initial encounter; H53.8 Other visual disturbances; R51.9 Headache, unspecified; Y93.9 Activity, unspecified; Y92.9 Unspecified place or not applicable; F41.8 Other specified anxiety disorders

== ENCOUNTER 2020-12-28 14:38 | Emergency (ER) | payer BC ==
[~2020-12-28] VITALS: Ht 160 cm; Wt 104.5 kg
[~2020-12-28 14:38] MED LIST changes: +TORADOL10 MG PO
[2020-12-28 15:28] VITALS: BP 127/91; Ht 160 cm; Wt 104.5 kg
[2020-12-28] MEDS ORDERED: METHOCARBAMOL500 MG PO (17:04)
[2020-12-28] MEDS ORDERED: MEDROL DOSE PACK4 MG PO (17:04)
[2020-12-28] MEDS ORDERED: ULTRAM50 MG PO (17:04)
== END 2020-12-28 18:17 | disposition home or self-care (01) ==
LOC: D.ER 14:38
DX: S39.012A Strain of muscle, fascia and tendon of lower back, initial encounter (principal); X50.9XXA Other and unspecified overexertion or strenuous movements or postures, initial encounter; Y93.9 Activity, unspecified; Y92.9 Unspecified place or not applicable

== ENCOUNTER 2021-02-05 18:13 | Emergency (ER) | payer BC ==
[~2021-02-05] VITALS: Ht 160 cm; Wt 99.1 kg
[2021-02-05 18:34] VITALS: BP 142/105; Ht 160 cm; Wt 99.1 kg
[2021-02-06] MEDS ORDERED: ULTRAM50 MG PO (00:21)
== END 2021-02-06 00:43 | disposition home or self-care (01) ==
LOC: D.ER 18:13
DX: G43.909 Migraine, unspecified, not intractable, without status migrainosus (principal); R07.9 Chest pain, unspecified